=== PATIENT | male | born 1950 | race Caucasian/White ===

== ENCOUNTER → 2024-02-26 13:36 | Outpatient (REF) | payer MEDICARE, OTHER, SELFPAY | LOC: HWRAD 13:36 | PROVIDERS: ATTENDING PHYSICIAN Physician Assistant Medical | DX: M25.511 Pain in right shoulder (principal) | CPT/HCPCS: 73030 ==

== ENCOUNTER 2024-04-23 15:44 | Emergency (ER) | payer MEDICARE, OTHER, SELFPAY ==
[2024-04-23 15:45] VITALS: BP 158/73
--- NOTE | 2024-04-23 18:08 | ED.MUSCINJ ---
HPI-Injury
<Junie Mahajan NP - Last Filed: 04/23/24 23:00>
General
Chief Complaint: Fall
Source: patient
Exam Limitations: none
Time Seen by Provider: 04/23/24 16:32
Nursing documentation reviewed up to this point in time: agreed with
History of Present Illness-Injury
Is this injury a work related problem?: No
Is pt an associate of [facility]?: No
Initial Injury comments:
Patient to ED s/p fall. States he missed a step and fell. Denies hitting his head. COmplains of pain to right shoulder, left taveras. Injury occurred just [employer]. To ED accompanied by spouse.
Past History
<Junie Mahajan NP - Last Filed: 04/23/24 23:00>
Past History
ED Past Medical History: None
Review of Systems
<Junie Mahajan NP - Last Filed: 04/23/24 23:00>
Review of Systems
Allergies reviewed?: Yes
All Other Systems: ROS reviewed and negative except as documented in HPI and ROS
Constitutional: Reports no symptoms
EENT: Reports no symptoms
Respiratory: Reports no symptoms
Cardiac: Reports no symptoms
ABD/GI: Reports no symptoms
Musculoskeletal: Reports joint pain (Pain to right shoulder)
Skin: Reports other (swelling, abrasion right taveras)
Neurological: Reports no symptoms
Psychiatric: Reports no symptoms
Musculoskeletal Injury Exam
<Junie Mahajan NP - Last Filed: 04/23/24 23:00>
Musculoskeletal Injury Exam
Right Shoulder:
Pain with Movement?: Moderate
Tender to palpation?: Moderate
Soft tissue swelling?: Mild
External deformity and angulation?: None
Joint effusion?: None
Contusion?: Moderate
Hematoma-local bleeding into tissue?: None
Strain- Sprain- Tear (Connective tissue injury)?: Moderate
Crepitus with movement?: No
Joint instability?: No
Malalignment/deformity?: No
Range of motion: Limited
Distal skin color and temperature: normal-warm & good color
Capillary Refill: normal
Normal distal neurovascular exam?: Yes
Peripheral Pulses: radial (right): 3+
Right Lower Leg:
Pain with Movement?: Moderate
Tender to palpation?: Moderate
Soft tissue swelling?: Moderate
External deformity and angulation?: None
Joint effusion?: None
Contusion?: Moderate
Hematoma-local bleeding into tissue?: None
Strain- Sprain- Tear (Connective tissue injury)?: None
Crepitus with movement?: No
Joint instability?: No
Malalignment/deformity?: No
Range of motion: Full
Distal skin color and temperature: normal-warm & good color
Capillary Refill: normal
Normal distal neurovascular exam?: No
Peripheral Pulses: posterior tibial (right): 3+ and dorsalis pedis (right): 3+
Skin Exam
<Junie Mahajan SECRETARIAL STENOGRAPHER - Last Filed: 04/23/24 23:00>
Abrasion
Right Lower Leg:
Description of abrasion: deep/clean
Phy Exam
<Junie Mahajan SECRETARIAL STENOGRAPHER - Last Filed: 04/23/24 23:00>
General Physical Exam
General Presentation: well appearing and mild distress
General age: appears stated age
General Skin: warm and dry
General Habitus: normal
General Mental: alert
Neurological Exam
Neurological Exam: alert, oriented x3, CN II-XII intact, no motor deficits, no sensory deficits and speech normal
Musculoskeletal Exam
Musculoskeletal Exam: neuro vasc intact
Skin Exam
Skin Exam: normal color and warm/dry
Psychiatric Exam
Psychiatric Exam: normal mood/affect
Injury Course
<Junie Mahajan SECRETARIAL STENOGRAPHER - Last Filed: 04/23/24 23:00>
Orders/Labs/Results
Orders:
Orders
04/23/24 15:50
Shoulder, Right, Trauma [CR Shoulder, Trauma - Right] Urgent
Comment:
Reason For Exam: fall, pain
Tib/Fib, Right 2 View [CR Leg Tibia/fibula Right 2 Vw] Urgent
Comment:
Reason For Exam: fall, pain
04/23/24 18:04
Shoulder Immobilizer Right- Tx ONCE
Hydrocodone 5/APAP 325 [[place] 5/325] 2 tablet PO NOW STA
<Amor Bhat DO - Last Filed: 04/23/24 18:16>
Orders/Labs/Results
Orders:
Orders
04/23/24 15:50
Shoulder, Right, Trauma [CR Shoulder, Trauma - Right] Urgent
Comment:
Reason For Exam: fall, pain
Tib/Fib, Right 2 View [CR Leg Tibia/fibula Right 2 Vw] Urgent
Comment:
Reason For Exam: fall, pain
04/23/24 18:04
Shoulder Immobilizer Right- Tx ONCE
Hydrocodone 5/APAP 325 [[place] 5/325] 2 tablet PO NOW STA
<Tita Davalos PA-C - Last Filed: 04/24/24 12:48>
Orders/Labs/Results
Orders:
Orders
04/23/24 15:50
Shoulder, Right, Trauma [CR Shoulder, Trauma - Right] Urgent
Comment:
Reason For Exam: fall, pain
Tib/Fib, Right 2 View [CR Leg Tibia/fibula Right 2 Vw] Urgent
Comment:
Reason For Exam: fall, pain
04/23/24 18:04
Shoulder Immobilizer Right- Tx ONCE
Hydrocodone 5/APAP 325 [[place] 5/325] 2 tablet PO NOW STA
<Junie Mahajan NP - Last Filed: 04/23/24 23:00>
*Radiology
Radiology exam reviewed: radiology read reviewed
*Pulse Oximetry
Patient hypoxic: no
*Critical Care Note
Total Time (30-74mins, 75-104mins- exclusive of procedures): Not Applicable
<Junie Mahajan NP - Last Filed: 04/23/24 23:00>
Update Note
Update Note:
Patient to ED after trip and fall. Denies hitting his head. Pain to right shoulder, right taveras. Xrays reviewed. No fracture noted RLE. Large abrasion to anterior taveras. Cleansed with NSS, antibiotic ointment and DSD applied by RN. Large amt of
swelling to RLE. Recommend khadijah wrap during day for compression, ice prn. RIght shoulder xray reveals fx with impaction proximal humerus. He was placed in sling. Pain meds given in dept. He is discharged home and will follow up in AM with
orthopedics.
<Tita Davalos PA-C - Last Filed: 04/24/24 12:48>
Update Note
Update Note:
Patient to ED after trip and fall. Denies hitting his head. Pain to right shoulder, right taveras. Xrays reviewed. No fracture noted RLE. Large abrasion to anterior taveras. Cleansed with NSS, antibiotic ointment and DSD applied by RN. Large amt of
swelling to RLE. Recommend khadijah wrap during day for compression, ice prn. RIght shoulder xray reveals fx with impaction proximal humerus. He was placed in sling. Pain meds given in dept. He is discharged home and will follow up in AM with
orthopedics.
04/24/24: Patient called requesting prescription pain medication. Chart reviewed. Prescription for 12 tablets of oxycodone sent electronically. He has an appt scheduled with orthopedics tomorrow.
ED Attending Note
<Junie Mahajan NP - Last Filed: 04/23/24 23:00>
-
Portions of this chart may have been created with voice recognition software.� Occasional wrong word or��sound alike� substitutions may have occurred due to the inherent limitations of voice recognition software.
<Amor Bhat DO - Last Filed: 04/23/24 18:16>
ED Attending Note
Patient seen and examined by attending physician: Yes
I performed the substantive portion of visit, reviewed & personally made and approve the management plan that is documented in note by myself or DOLLY.: Yes
ED Attending Note:
74-year-old male after a fall. Denies any head injury. No neck or back pain. Exam: Swelling to the right shoulder but is able to sort of extended shoulders back and I do not suspect dislocation as there is no empty glenoid and he is not held in
internal rotation. Abrasion to the right elbow. Abrasion to the right lower extremity. Assessment and plan: Shoulder sling and outpatient orthopedic follow-up
Discharge Plan
Departure
Patient Disposition: Home (Routine Discharge)
Date of Disposition: 04/23/24
Time of Disposition: 18:53
Patient with high blood pressure during this ER visit?: No
Condition: Good
Covid-19: Not Applicable
Discharge Problem:
Fracture of proximal humerus, Contusion of left leg, Abrasion of leg
Instructions: Wound Care (DC), Contusion (DC), Preventing falls in adults, Skin Abrasions (DC), Shoulder or upper arm fracture
Prescriptions:
New
oxycodone 5 mg tablet
5 mg PO Q6H PRN (Reason: Pain) Qty: 12 0RF
Referrals:
René Fong MD [Family Provider] -
Amor Rueda MD [Active] - Call in 1-3 days for appt
Interventions
Interventions:
*Risk Screen - Suicide Last Done: 04/23/24 17:10
*General Assessment Last Done: 04/23/24 17:10
*Neglect/Abuse Screening Last Done: 04/23/24 17:10
ED- Fall Risk Assessment Last Done: 04/23/24 19:28
*ED COVID-19 Vaccine History Last Done: 04/23/24 17:10
*Nursing Disposition Last Done: 04/23/24 19:28
ED-Musculoskeletal Assessment Last Done: 04/23/24 17:10
ED- Neurological Assessment Last Done: 04/23/24 17:10
ED-Skin Assessment Last Done: 04/23/24 17:10
Discharge Date and Time
Discharge Date/Time: 04/23/24 19:37
Print Language: URUGUAYAN
[2024-04-23] MEDS: NORCO 5/325 2 TABLET PO (18:09)
[2024-04-23 19:28] VITALS: BP 138/86
== END 2024-04-23 19:37 | disposition home or self-care (01) ==
LOC: EMR 15:44
PROVIDERS: EMERGENCY PHYSICIAN Emergency Medicine; FAMILY PHYSICIAN Family Medicine
DX: S80.12XA Contusion of left lower leg, initial encounter (principal); S80.811A Abrasion, right lower leg, initial encounter; S50.311A Abrasion of right elbow, initial encounter; M25.511 Pain in right shoulder; W10.9XXA Fall (on) (from) unspecified stairs and steps, initial encounter
CPT/HCPCS: 99283; 73030; 73590

== ENCOUNTER 2024-04-28 12:50 | Emergency (ER) | payer MEDICARE, OTHER, SELFPAY ==
[2024-04-28 12:55] VITALS: BP 146/75
--- NOTE | 2024-04-28 14:59 | ED.GENMED ---
History of Present Illness
General
Chief Complaint: Fall
Time Seen by Provider: 04/28/24 14:59
History of Present Illness
History of Present Illness:
TIME OF INITIAL ENCOUNTER: 3:10 PM
HPI: Patient fell 5 days ago with injury to the right lower extremity. Patient was seen here that day. He has been having some trouble with dressing changes as his is ill and has caring for him. Today, he noticed a bloody blister which has
since open. There is no evidence for pus or any foul-smelling odor. The pain continues to improve but still persists.
EXAM:
GENERAL: Well appearing in no distress
HEENT: Moist oral mucosa
NEUROLOGIC: Excellent strength all extremities, no obvious coordination deficits
PSYCHIATRIC: Appropriate mental status, normal insight and judgement
EXTREMITIES: At the right lower extremity, there is a rather large wound with skin tears and abrasions over an associated relatively large hematoma the anterolateral right taveras region. An unroofed blister which was likely hemorrhagic is noted but
no evidence of pus nor foul-smelling odor. There is mild diffuse tenderness but the compartments are soft. He has a bounding DP pulse. Sling is noted to the right upper extremity.
SKIN: No rash, no lesions
NUMBER AND COMPLEXITY OF PROBLEMS ADDRESSED AT THE ENCOUNTER
� Chronic conditions affecting care: High blood pressure, hyperlipidemia
� Acute Exacerbation and/or Progression of Chronic Illness: This is an acute problem
� Differential Diagnosis includes: Infected wound, poorly healing wound, prolonged healing process, abrasion, cellulitis,
AMOUNT AND/OR COMPLEXITY OF DATA TO BE REVIEWED AND ANALYZED
� I performed an independent evaluation of and my interpretation is:
EKG:
CT:
X-rays:
Laboratory Studies:
Other:
� Review of other/old records: I reviewed old records, on April 23, the patient had a tib-fib and shoulder x-rays�showed impacted surgical neck fracture
� Clinical information was obtained by an independent historian: None needed
� Prescriptions/Medications Considered but not given:
� Further testing considered but not performed: Vital signs are not consistent with sepsis, held off on any labs but will place on antibiotics
RISK OF COMPLICATIONS AND/OR MORBIDITY OR MORTALITY OF PATIENT MANAGEMENT
� Social determinants of health affecting care: Lives at home but has trouble changing the splint
� Discussion with other providers: I spoke to case management and they are arranging for daily dressing changes at the house.
� Escalation of care including admission/observation vs risk of discharge considered: Currently, there is no evidence for compartment syndrome
ANY OTHER UPDATES:
4 PM: I reassessed patient, no significant change in the appearance of his wound. He was seen by case management who is arranging for outpatient services. Will add antibiotics for the possibility of infection. He is to follow-up with AST here as
well. ALT is
Past History
Past History
ED Past Medical History: None
Phy Exam
Physical Exam
Physical Exam:
See HPI
Course
Orders/Labs/Results
Orders:
Orders
04/28/24 15:19
Case Management Consult ONCE
Case Management Consult: VN/Home Care
Comment: dressing changes
Nursing to Place Non Medication Order As Directed
Physician Order: nonadherent dressing then gauze wrap
04/28/24 15:20
Cephalexin Monohydrate [Keflex] 500 mg PO NOW STA
Vital Signs
Initial and Last Documented VS:
Initial Vital Signs
Temp Pulse Resp BP Pulse Ox
37.1 C 100 16 146/75 96
04/28/24 12:55 04/28/24 12:55 04/28/24 12:55 04/28/24 12:55 04/28/24 12:55
Last Documented Vital Signs
Temp Pulse Resp BP Pulse Ox
37.1 C 100 16 146/75 96
04/28/24 12:55 04/28/24 12:55 04/28/24 12:55 04/28/24 12:55 04/28/24 12:55
*Critical Care Note
Total Time (30-74mins, 75-104mins- exclusive of procedures): Not Applicable
ED Attending Note
-
Portions of this chart may have been created with voice recognition software.� Occasional wrong word or��sound alike� substitutions may have occurred due to the inherent limitations of voice recognition software.
Discharge Plan
Departure
Patient Disposition: Home (Routine Discharge)
Date of Disposition: 04/28/24
Time of Disposition: 15:28
Patient with high blood pressure during this ER visit?: Yes
Discharge Problem:
Delayed wound healing
Instructions: Wound care - ED discharge instructions
Prescriptions:
New
cephalexin 500 mg tablet
500 mg PO TID Qty: 21 0RF
No Action
oxycodone 5 mg tablet
5 mg PO Q6H PRN (Reason: Pain) Qty: 12 0RF
Referrals:
Jimmy Iglesias PA [Family Provider] -
Constantino Morel MD [Active] - Follow up in 2-3 days
Activity Restrictions/Additional Instructions:
I spoke to case management�they should be sending somebody to the house to help with dressing changes. Given the appearance of the wound, I recommend that you follow-up with health support specialist such as Dr. Morel -please call their office for
follow-up. Although I do not see any clear signs of infection, I think would be reasonable to place you on antibiotics in case there could be a start of an infection. Follow-up with your primary care doctor. Currently, there is no sign for
compartment syndrome.
Interventions
Interventions:
*Risk Screen - Suicide Last Done: 04/28/24 12:59
*Neglect/Abuse Screening Last Done: 04/28/24 12:59
Discharge Date and Time
Print Language: FRENCH
--- NOTE | 2024-04-28 15:42 | CM ---
ED CM consult for wound care
Bedside meeting with pt
He resides with his spouse in [place] with [place]
He is typically indep with his ADLs
Pt had fall 5 days prior and now requires daily wound care for next 7 days per physician
Pt has R shoulder fx and sling
Spouse had knee replacement and has been unable to provide the required wound care that pt requires
Referral to [facility] with pt permission
Pt accepted for service
Pt note's his spouse with transport difficulties to outpt rehab
Suggested family or [employer]
Also suggested they call her physician to order VN should no alternative rides be found
--- NOTE | 2024-04-28 15:48 | VNURNOTE ---
Home Health Liaison met with patient at bedside to discuss [facility] nurse/therapy, visits, schedule and homebound status. Patient is agreeable and understands that visits at home will be 2-3 x per week to assess and teach medical management, wound care.
[facility] brochure provided with contact information. Patient is aware that [facility] will contact them for start of care in 1-2 days after discharge from .
[facility] referral completed in Care Port.
[2024-04-28] MEDS: KEFLEX 500 MG PO (16:00)
== END 2024-04-28 17:01 | disposition home or self-care (01) ==
LOC: EMR 12:50
PROVIDERS: EMERGENCY PHYSICIAN Emergency Medicine; FAMILY PHYSICIAN Physician Assistant
DX: S81.811A Laceration without foreign body, right lower leg, initial encounter (principal); W19.XXXA Unspecified fall, initial encounter
CPT/HCPCS: 99283

== ENCOUNTER → 2024-05-01 12:45 | Outpatient (REF) | payer MEDICARE, OTHER, SELFPAY | LOC: WOUND 12:45 | PROVIDERS: ATTENDING PHYSICIAN Surgery; FAMILY PHYSICIAN Physician Assistant | DX: L97.212 Non-pressure chronic ulcer of right calf with fat layer exposed (principal); S80.11XA Contusion of right lower leg, initial encounter; X58.XXXA Exposure to other specified factors, initial encounter | CPT/HCPCS: 99203 ==

== ENCOUNTER → 2024-05-01 13:55 | Outpatient (REF) | payer MEDICARE, OTHER, SELFPAY | LOC: HWRAD 13:55 | PROVIDERS: ATTENDING PHYSICIAN Physician Assistant; FAMILY PHYSICIAN Physician Assistant | DX: S42.201A Unspecified fracture of upper end of right humerus, initial encounter for closed fracture (principal) | CPT/HCPCS: 73200 ==

== ENCOUNTER → 2024-05-08 10:38 | Outpatient (REF) | payer MEDICARE, OTHER, SELFPAY | LOC: WOUND 10:38 | PROVIDERS: ATTENDING PHYSICIAN Surgery | DX: L97.212 Non-pressure chronic ulcer of right calf with fat layer exposed (principal); S80.11XA Contusion of right lower leg, initial encounter; S51.001A Unspecified open wound of right elbow, initial encounter; I10 Essential (primary) hypertension; R73.03 Prediabetes | CPT/HCPCS: 97597; 99213 ==

== ENCOUNTER 2024-05-11 23:21 | Inpatient (IN) | payer MEDICARE, OTHER, SELFPAY ==
[2024-05-11 21:35] VITALS: BP 163/69; BMI 42.2
[2024-05-11 21:51] LABS: % Basophils 0.1 % (0-2); % Eosinophils 0.9 % (0-6); % Immature Granulocytes 0.2 % (0-0.5); % Lymphocytes 11.5 % (20.5-51.1); % Monocytes 6.9 % (1.7-9.3); % Neutrophils 80.4 % (42.2-75.2); Absolute Eosinophils 0.1 10^3/uL (0-0.7); Absolute Monocytes 0.6 10^3/uL (0.1-0.6); Absolute Neutrophils 7.1 10^3/uL (1.4-6.5); Hematocrit 33.3 % (39.0-52.0); Hemoglobin 11.3 g/dL (13.0-18.0); Mean Corp Hgb Conc. 33.9 g/dL (33.0-37.0); Mean Corpuscular Hgb 29.9 pg (27.0-31.0); Mean Corpuscular Volume 88.1 fL (80.0-94.0); Mean Platelet Volume 8.3 fL (7.4-10.4); Nucleated Red Blood Cells % 0 % (-); Platelet Count 180 10^3/uL (130-400); Red Blood Cell Count 3.78 10^6/uL (4.70-6.10); White Blood Cell Count 8.8 10^3/uL (4.8-10.8)
[2024-05-11 22:00] VITALS: BP 136/73
[2024-05-11 22:01] LABS: INR 1.07; PT 14.2 Sec (11.4-14.6)
[2024-05-11 22:04] LABS: ALT (SGPT) 31 U/L (0-50); AST (SGOT) 44 U/L (17-59); Albumin 3.9 g/dl (3.5-5.0); Alkaline Phosphatase 117 U/L (38-126); Blood Urea Nitrogen 23 mg/dl (9-20); Carbon Dioxide 28 mmol/L (22-30); Chloride 100 mmol/L (98-107); Estimated Creatinine Clearance 108 ml/min; Glucose 154 mg/dl (70-99); Potassium 3.4 mmol/L (3.5-5.1); Sodium 137 mmol/L (135-145); Total Bilirubin 0.9 mg/dl (0.2-1.3); Total Protein 6.3 g/dl (6.3-8.2); eGFR > 60.00
--- NOTE | 2024-05-11 22:20 | ED.GENMED ---
History of Present Illness
<Charlotte Wayne MD, Resident - Last Filed: 05/12/24 01:30>
General
Chief Complaint: Breathing Problem
Source: patient and family
Exam Limitations: none
Time Seen by Provider: 05/11/24 22:03
Nursing documentation reviewed up to this point in time: agreed with
History of Present Illness
History of Present Illness:
74yo M with PMH HTN, RENA, recent fall and humerus fracture who presented from home to ED for dizziness/shortness of breath. On 04/23/24, he missed a step and fell, which resulted in right humerus fracture and large right taveras abrasion; no head
trauma. Since then he was seen in ED again for poor wound healing of taveras. He has been following with orthopedics, wound care, and visiting nursing. He tentatively has orthopedic surgery scheduled this week, but he has decided to pursue conservative
management instead.
A few days ago he also noticed swelling of left lower extremity. He denies chest pain/pressure, cough, fevers/chills. He reports that today was a 'normal day' until 8:15pm, when he ambulated in his home and felt dizziness and shortness of breath.
When EMS arrived at his home, he was hypoxic and required 6L O2 via NC and was tachycardic in 120s-130s. He is otherwise in his usual state of health and reports improvement in all of his injuries from the recent fall-- denies worsening
pain/redness/drainage from RLE. He takes baby aspirin daily, no other blood thinners.
Past History
<Charlotte Wayne MD, Resident - Last Filed: 05/12/24 01:30>
Past History
ED Past Medical History: Cancer (skin cancer s/p mohs x5), HTN, Hypercholesterolemia and Other (sleep apnea, hereditary peripheral neuropathy); Negative Arrthythmia
ED Past Surgical History: Orthopedic (L elbow ~2013) and Other (mohs surgery (nose x2, neck x2, ear))
Patient has exhibited threatening behavior?: No
Social History
Tobacco: Non-smoker
Alcohol: None
Drug: None
Personal:
Living: with family
Family History
Family History: Other (noncontributory)
Review of Systems
<Charlotte Wayne MD, Resident - Last Filed: 05/12/24 01:30>
Review of Systems
Allergies reviewed?: Yes
Constitutional: Reports no symptoms; Denies fever, fatigue or chills
EENT: Reports no symptoms
Respiratory: Reports trouble breathing; Denies cough or hemoptysis
Cardiac: Denies chest pain, diaphoresis, palpitations or syncope
ABD/GI: Reports no symptoms; Denies abdominal pain, nausea, vomiting, diarrhea, constipated, bloody stools or black stools
: Reports no symptoms; Denies dysuria or difficulty voiding
Musculoskeletal: Reports other (see HPI)
Skin: Reports other (RLE abrasion-- no purulent drainage, no worsening erythema/edema)
Neurological: Reports dizzy and numbness (chronic, at baseline); Denies headache or weakness
Endocrine: Reports no symptoms
Hematologic/Lymphatic: Reports no symptoms
Psychiatric: Reports no symptoms
Phy Exam
<Charlotte Wayne MD, Resident - Last Filed: 05/12/24 01:30>
General Physical Exam
General Presentation: well appearing, no apparent distress and other (on supplemental O2 via NC )
General age: appears stated age
General Skin: warm and dry
General Habitus: elderly and obese
General Mental: alert
General Hydration: appears well hydrated
Cardiovascular Exam
Cardiovascular Exam: tachycardia (regular rhythm)
Heart Sounds: normal
Pulmonary Exam
Pulmonary Exam: lungs clear, no crackles, no rhonchi, no stridor, no wheezing, no cough and decreased breath sounds (left slightly dbs)
Oxygen Status: oxygen 6 liters via NC
Respirations: other (nonlabored breathing, conversant without difficulty )
Gastrointestinal Exam
Gastrointestinal Exam: non tender, soft and non distended (obese abdomen)
Neurological Exam
Neurological Exam: alert, oriented x3 and speech normal
Musculoskeletal Exam
Musculoskeletal Exam: edema (LLE +3 pitting edema, calf nontender, alexandro sign negative) and other (RLE wrapped from foot to knee, dressing clean/dry/intact; RUE without sling/splint/cast, limited ROM)
Skin Exam
Skin Exam: normal color and warm/dry
Psychiatric Exam
Psychiatric Exam: normal mood/affect
Scores
<Charlotte Wayne MD, Resident - Last Filed: 05/12/24 01:30>
Heart Failure Risk
Heart Failure Risk Score: Not Applicable
Course
<Charlotte Wayne MD, Resident - Last Filed: 05/12/24 01:30>
Orders/Labs/Results
Orders:
Orders
05/11/24 21:34
Electrocardiogram (*1) Urgent
Reason for Study: Shortness of Breath
Cardiac Monitoring- Treatment ONCE
EKG- Treatment ONCE
05/11/24 21:42
CMP [Comprehensive Metabolic Panel] Urgent
Complete Blood Count/With Diff Urgent
PT/INR [Prothrombin Time] Urgent
PTT Urgent
Comment: ADDED
Troponin I Urgent
05/11/24 21:48
CT Chest PE Study Urgent
Comment:
Reason For Exam: SOB
05/11/24 22:34
Heparin 10,000 units IV NOW STA
Nursing to Place Non Medication Order As Directed
Physician Order: PTT 6 hours after initial start of Heparin infusion
Above order entered?: Yes
05/11/24 22:35
Heparin 5,000 units .ROUTE .STK-MED ONE
05/11/24 22:42
Heparin 10,000 units IV PRN PRN
05/11/24 22:43
Heparin 5,000 units IV PRN PRN
05/11/24 22:45
Heparin 12008 Units/250 ml 25,000 units in 250 ml IV PER PROTOCOL
Weight to be used for heparin protocol in kilograms (kg):: 126
Protocol:: DVT/PE
PTT Goal Range to be used:: PTT 73 to 111 seconds
Order type:: Initial
INITIAL Infusion Dose (UNITS/KG/hr) & then follow protocol:: 18 units/kg/hr
Infusion Dose in UNITS/hr & then follow protocol (UNITS/hr):: 2,000
INFUSION RATE in mL/hr & then follow protocol (mL/hr):: 20
For DVT/PE algorithm, re-bolus for low PTT?: Yes
PTT less than or equal to 64 seconds:: Re-bolus 80 units/kg (max 10,000units). Increase by 500 units/hr
(+ 5mL/hr)
PTT 64.1 to 72.9 seconds:: Re-bolus 40 units/kg (max 5,000 units). Increase by 300 units/hr
(+ 3mL/hr)
PTT 73 to 111 seconds:: Target Range. No change in rate.
PTT 111.1 to 130.9 seconds:: Decrease rate by 300 units/hr (- 3 mL/hr)
PTT 131 to 199.9 seconds:: HOLD for 1 hr. Then decrease by 400 units/hr (- 4mL/hr)
PTT greater than or equal to 200 seconds:: HOLD for 2 hrs & Notify Provider. Then decrease by 500 units/hr
(- 5mL/hr)
Lab follow-up:: Each change, PTT q6h until 2 consecutive are therapeutic. Then
PTT daily.
05/11/24 22:47
Add On- LAB Urgent
Tests Added?: PTT
05/11/24 23:00
Flush (0.9% Sodium Chloride) [Flush (Nss)] See Dose Instructions IV PER PROTOCOL
05/11/24 23:04
Potassium Chloride [KCl] 40 meq PO NOW STA
05/11/24 23:05
Admit/Transfer Patient As Directed
Co-Sign Provider:
Level of Care: Inpatient admission
Assign to:: ICU
Physician / Group: karis
Diagnosis: PE
Reason for Hospitalization: PE
Expected length of stay greater than two midnights?: Yes
ELOS- Estimated Length of Stay in days: 3
I certify the patient meets the requirements for IP care: Yes
05/11/24 23:06
PRN Pain Medication Management As Directed
May give lesser potent ordered pain med per pt: Yes
preference::
Protocol:: Medication orders for pain may be administered in a
manner that supports deferring to patient preference
when the pt is:
- Requesting an ordered lesser potent pain medication.
Least to most potent pain medications are defined
as: acetaminophen < NSAID < tramadol < opioids
(morphine, oxycodone, hydromorphone).
- Requesting a lesser dose of the same medication IF
ORDERED.
- Requesting a less intrusive route of administration
if both routes are prescribed by the provider (PO <
IV).
05/11/24 23:07
Code Status As Directed
Resuscitation Status: Full Code
05/11/24 23:21
CARDIOLOGY CONSULT Routine
Consulting Provider: Karl Travis
Was physician already notified: No
Reason for consult: elevated trop, saddle embolus, PE
Consult Notification Routine
Specialty to Notify: Cardiology
Date consulting provider notified: 05/12/24
Time consulting provider notified: 07:30
Notified:: Service
05/11/24 23:41
IRAD CONSULT Routine
Consulting Provider: Landry Rg
Was physician already notified: Yes
Reason for Consult/Procedure: PE lysis
Acknowledgement that appropriate orders are entered: Yes
05/12/24 01:45
Laser Technician Consult Routine
Consulting Provider: Leila Luz
Was physician already notified: Yes
Heparin Protocol- PTT Orders As Directed
PTT per Heparin protocol: -Obtain CBC and baseline PTT - if not already collected.
-Obtain PTT 6 hours from start of infusion. Then, every 6 hours until 2 consecutive
PTT's are therapeutic. Then, PTT Daily.
-With each rate change, obtain PTT every 6 hours until 2 consecutive PTT's are
therapeutic. Then, PTT Daily.
Activity As Directed
Activity Level: As Tolerated
Bladder Scan As Directed
Follow Bladder Retention/Intermittent Cath Algorithm?: Yes
Frequency: Per Retention Algorithm
Comment: as per intermittent urinary catheter algorithm
Bladder Scan As Directed
Follow Bladder Retention/Intermittent Cath Algorithm?: Yes
PRN if no void in __ hours: 6
Frequency: Per Retention Algorithm
If Bladder Scan Result >: 400
then:: Straight cath
Intake/ Output As Directed
Frequency: Per unit guidelines
Notify MD As Directed
Notify physician if: PTT is greater than or equal to 200.
Straight Cath As Directed
Frequency: Per Retention Algorithm
Additional Instructions: as per intermittent urinary catheter algorithm
Straight Cath As Directed
Frequency: Per Retention Algorithm
Additional Instructions: straight cath as needed per acute urinary retention algorithm for 24 hrs
Additional Instructions: for bladder scan greater than 400 mL
Vital Signs As Directed
Frequency: Per unit guidelines
Pt Eval And Treat Routine
Activity Level: As Tolerated
05/12/24 04:37
Troponin I Q6H
05/12/24 Breakfast
NPO
Allow oral meds: Yes
Allow clear liquids: No
05/12/24 08:00
Amlodipine [Norvasc] 2.5 mg PO DAILY
Atorvastatin [Lipitor] 20 mg PO DAILY
Lisinopril [Zestril] 20 mg PO DAILY
fluticasone propionate 2 spray NASAL DAILY
05/12/24 10:00
Troponin I Q6H
05/12/24 16:00
Troponin I Q6H
05/13/24 06:00
Complete Blood Count/No Diff Q2D
Comment: notify provider: Platelet count < 130,000 or decrease by 50% from baseline
05/15/24 06:00
Complete Blood Count/No Diff Q2D
Comment: notify provider: Platelet count < 130,000 or decrease by 50% from baseline
05/17/24 06:00
Complete Blood Count/No Diff Q2D
Comment: notify provider: Platelet count < 130,000 or decrease by 50% from baseline
05/19/24 06:00
Complete Blood Count/No Diff Q2D
Comment: notify provider: Platelet count < 130,000 or decrease by 50% from baseline
05/21/24 06:00
Complete Blood Count/No Diff Q2D
Comment: notify provider: Platelet count < 130,000 or decrease by 50% from baseline
05/23/24 06:00
Complete Blood Count/No Diff Q2D
Comment: notify provider: Platelet count < 130,000 or decrease by 50% from baseline
05/25/24 06:00
Complete Blood Count/No Diff Q2D
Comment: notify provider: Platelet count < 130,000 or decrease by 50% from baseline
05/27/24 06:00
Complete Blood Count/No Diff Q2D
Comment: notify provider: Platelet count < 130,000 or decrease by 50% from baseline
Abnormal Lab Results
05/11/24
21:42
RBC 3.78 L 10^6/uL
(4.70-6.10)
Hgb 11.3 L g/dL
(13.0-18.0)
Hct 33.3 L %
(39.0-52.0)
Absolute Neuts (auto) 7.1 H 10^3/uL
(1.4-6.5)
Absolute Lymphs (auto) 1.0 L 10^3/uL
(1.2-3.4)
Neutrophils % 80.4 H %
(42.2-75.2)
Lymphocytes % 11.5 L %
(20.5-51.1)
Potassium 3.4 L mmol/L
(3.5-5.1)
BUN 23 H mg/dl
(9-20)
Glucose 154 H mg/dl
(70-99)
Troponin I 0.204 H* ng/ml
05/11/24 21:42
05/11/24 21:42
Vital Signs
Initial and Last Documented VS:
Initial Vital Signs
Temp Pulse Resp BP Pulse Ox
97.9 F 122 19 163/69 82
05/11/24 21:35 05/11/24 21:35 05/11/24 21:35 05/11/24 21:35 05/11/24 21:35
Last Documented Vital Signs
Temp Pulse Resp BP Pulse Ox
98.6 F 111 21 132/75 96
05/12/24 02:45 05/12/24 06:00 05/12/24 06:00 05/12/24 06:00 05/12/24 06:00
<Kayla Bennett, DO - Last Filed: 05/12/24 07:54>
Orders/Labs/Results
Orders:
Orders
05/11/24 21:34
Electrocardiogram (*1) Urgent
Reason for Study: Shortness of Breath
Cardiac Monitoring- Treatment ONCE
EKG- Treatment ONCE
05/11/24 21:42
CMP [Comprehensive Metabolic Panel] Urgent
Complete Blood Count/With Diff Urgent
PT/INR [Prothrombin Time] Urgent
PTT Urgent
Comment: ADDED
Troponin I Urgent
05/11/24 21:48
CT Chest PE Study Urgent
Comment:
Reason For Exam: SOB
05/11/24 22:34
Heparin 10,000 units IV NOW STA
Nursing to Place Non Medication Order As Directed
Physician Order: PTT 6 hours after initial start of Heparin infusion
Above order entered?: Yes
05/11/24 22:35
Heparin 5,000 units .ROUTE .STK-MED ONE
05/11/24 22:42
Heparin 10,000 units IV PRN PRN
05/11/24 22:43
Heparin 5,000 units IV PRN PRN
05/11/24 22:45
Heparin 94637 Units/250 ml 25,000 units in 250 ml IV PER PROTOCOL
Weight to be used for heparin protocol in kilograms (kg):: 126
Protocol:: DVT/PE
PTT Goal Range to be used:: PTT 73 to 111 seconds
Order type:: Initial
INITIAL Infusion Dose (UNITS/KG/hr) & then follow protocol:: 18 units/kg/hr
Infusion Dose in UNITS/hr & then follow protocol (UNITS/hr):: 2,000
INFUSION RATE in mL/hr & then follow protocol (mL/hr):: 20
For DVT/PE algorithm, re-bolus for low PTT?: Yes
PTT less than or equal to 64 seconds:: Re-bolus 80 units/kg (max 10,000units). Increase by 500 units/hr
(+ 5mL/hr)
PTT 64.1 to 72.9 seconds:: Re-bolus 40 units/kg (max 5,000 units). Increase by 300 units/hr
(+ 3mL/hr)
PTT 73 to 111 seconds:: Target Range. No change in rate.
PTT 111.1 to 130.9 seconds:: Decrease rate by 300 units/hr (- 3 mL/hr)
PTT 131 to 199.9 seconds:: HOLD for 1 hr. Then decrease by 400 units/hr (- 4mL/hr)
PTT greater than or equal to 200 seconds:: HOLD for 2 hrs & Notify Provider. Then decrease by 500 units/hr
(- 5mL/hr)
Lab follow-up:: Each change, PTT q6h until 2 consecutive are therapeutic. Then
PTT daily.
05/11/24 22:47
Add On- LAB Urgent
Tests Added?: PTT
05/11/24 23:00
Flush (0.9% Sodium Chloride) [Flush (Nss)] See Dose Instructions IV PER PROTOCOL
05/11/24 23:04
Potassium Chloride [KCl] 40 meq PO NOW STA
05/11/24 23:05
Admit/Transfer Patient As Directed
Co-Sign Provider:
Level of Care: Inpatient admission
Assign to:: ICU
Physician / Group: karis
Diagnosis: PE
Reason for Hospitalization: PE
Expected length of stay greater than two midnights?: Yes
ELOS- Estimated Length of Stay in days: 3
I certify the patient meets the requirements for IP care: Yes
05/11/24 23:06
PRN Pain Medication Management As Directed
May give lesser potent ordered pain med per pt: Yes
preference::
Protocol:: Medication orders for pain may be administered in a
manner that supports deferring to patient preference
when the pt is:
- Requesting an ordered lesser potent pain medication.
Least to most potent pain medications are defined
as: acetaminophen < NSAID < tramadol < opioids
(morphine, oxycodone, hydromorphone).
- Requesting a lesser dose of the same medication IF
ORDERED.
- Requesting a less intrusive route of administration
if both routes are prescribed by the provider (PO <
IV).
05/11/24 23:07
Code Status As Directed
Resuscitation Status: Full Code
05/11/24 23:21
CARDIOLOGY CONSULT Routine
Consulting Provider: Karl Travis
Was physician already notified: No
Reason for consult: elevated trop, saddle embolus, PE
Consult Notification Routine
Specialty to Notify: Cardiology
Date consulting provider notified: 05/12/24
Time consulting provider notified: 07:30
Notified:: Service
05/11/24 23:41
IRAD CONSULT Routine
Consulting Provider: Landry Rg
Was physician already notified: Yes
Reason for Consult/Procedure: PE lysis
Acknowledgement that appropriate orders are entered: Yes
05/12/24 01:45
Laser Technician Consult Routine
Consulting Provider: Leila Luz
Was physician already notified: Yes
Heparin Protocol- PTT Orders As Directed
PTT per Heparin protocol: -Obtain CBC and baseline PTT - if not already collected.
-Obtain PTT 6 hours from start of infusion. Then, every 6 hours until 2 consecutive
PTT's are therapeutic. Then, PTT Daily.
-With each rate change, obtain PTT every 6 hours until 2 consecutive PTT's are
therapeutic. Then, PTT Daily.
Activity As Directed
Activity Level: As Tolerated
Bladder Scan As Directed
Follow Bladder Retention/Intermittent Cath Algorithm?: Yes
Frequency: Per Retention Algorithm
Comment: as per intermittent urinary catheter algorithm
Bladder Scan As Directed
Follow Bladder Retention/Intermittent Cath Algorithm?: Yes
PRN if no void in __ hours: 6
Frequency: Per Retention Algorithm
If Bladder Scan Result >: 400
then:: Straight cath
Intake/ Output As Directed
Frequency: Per unit guidelines
Notify MD As Directed
Notify physician if: PTT is greater than or equal to 200.
Straight Cath As Directed
Frequency: Per Retention Algorithm
Additional Instructions: as per intermittent urinary catheter algorithm
Straight Cath As Directed
Frequency: Per Retention Algorithm
Additional Instructions: straight cath as needed per acute urinary retention algorithm for 24 hrs
Additional Instructions: for bladder scan greater than 400 mL
Vital Signs As Directed
Frequency: Per unit guidelines
Pt Eval And Treat Routine
Activity Level: As Tolerated
05/12/24 04:37
Troponin I Q6H
05/12/24 Breakfast
NPO
Allow oral meds: Yes
Allow clear liquids: No
05/12/24 08:00
Amlodipine [Norvasc] 2.5 mg PO DAILY
Atorvastatin [Lipitor] 20 mg PO DAILY
Lisinopril [Zestril] 20 mg PO DAILY
fluticasone propionate 2 spray NASAL DAILY
05/12/24 10:00
Troponin I Q6H
05/12/24 16:00
Troponin I Q6H
05/13/24 06:00
Complete Blood Count/No Diff Q2D
Comment: notify provider: Platelet count < 130,000 or decrease by 50% from baseline
05/15/24 06:00
Complete Blood Count/No Diff Q2D
Comment: notify provider: Platelet count < 130,000 or decrease by 50% from baseline
05/17/24 06:00
Complete Blood Count/No Diff Q2D
Comment: notify provider: Platelet count < 130,000 or decrease by 50% from baseline
05/19/24 06:00
Complete Blood Count/No Diff Q2D
Comment: notify provider: Platelet count < 130,000 or decrease by 50% from baseline
05/21/24 06:00
Complete Blood Count/No Diff Q2D
Comment: notify provider: Platelet count < 130,000 or decrease by 50% from baseline
05/23/24 06:00
Complete Blood Count/No Diff Q2D
Comment: notify provider: Platelet count < 130,000 or decrease by 50% from baseline
05/25/24 06:00
Complete Blood Count/No Diff Q2D
Comment: notify provider: Platelet count < 130,000 or decrease by 50% from baseline
05/27/24 06:00
Complete Blood Count/No Diff Q2D
Comment: notify provider: Platelet count < 130,000 or decrease by 50% from baseline
Abnormal Lab Results
05/11/24
21:42
RBC 3.78 L 10^6/uL
(4.70-6.10)
Hgb 11.3 L g/dL
(13.0-18.0)
Hct 33.3 L %
(39.0-52.0)
Absolute Neuts (auto) 7.1 H 10^3/uL
(1.4-6.5)
Absolute Lymphs (auto) 1.0 L 10^3/uL
(1.2-3.4)
Neutrophils % 80.4 H %
(42.2-75.2)
Lymphocytes % 11.5 L %
(20.5-51.1)
Potassium 3.4 L mmol/L
(3.5-5.1)
BUN 23 H mg/dl
(9-20)
Glucose 154 H mg/dl
(70-99)
Troponin I 0.204 H* ng/ml
05/11/24 21:42
05/11/24 21:42
Vital Signs
Initial and Last Documented VS:
Initial Vital Signs
Temp Pulse Resp BP Pulse Ox
97.9 F 122 19 163/69 82
05/11/24 21:35 05/11/24 21:35 05/11/24 21:35 05/11/24 21:35 05/11/24 21:35
Last Documented Vital Signs
Temp Pulse Resp BP Pulse Ox
98.6 F 111 21 132/75 96
05/12/24 02:45 05/12/24 06:00 05/12/24 06:00 05/12/24 06:00 05/12/24 06:00
<Charlotte Wayne MD, Resident - Last Filed: 05/12/24 01:30>
MDM/Problems Addressed
Differential Diagnosis Includes:
DVT/PE, ACS, pneumothorax
MDM/Problems Addressed:
74yo M with recent fall/humerus fracture, now presenting for SOB/dizziness, LLE edema.
His presentation is highly suspicious for PE given his history of recent fall and being less ambulatory, presenting symptoms, and hypoxia/tachycardia.
Labs drawn prior to evaluation notable for troponin 0.204, otherwise largely unremarkable-- mild anemia and hypokalemia noted.
Stat CT scan demonstrated saddle embolus. PERT alert was called at 2230. Elevated troponin likely secondary to right heart strain from PE.
IV heparin was initiated. PTT from admission pending.
This was discussed with radiology, interventional radiology, hospitalist.
Plan for IR cath and hospitalist admission.
Discussed above with patient and family (son, daughter in law) at bedside-- they are understanding and agreeable with plan.
<Charlotte Wayne MD, Resident - Last Filed: 05/12/24 01:30>
*Critical Care Note
Total Time (30-74mins, 75-104mins- exclusive of procedures): 60 minutes
ED Attending Note
<Charlotte Wayne MD, Resident - Last Filed: 05/12/24 01:30>
-
Portions of this chart may have been created with voice recognition software.� Occasional wrong word or��sound alike� substitutions may have occurred due to the inherent limitations of voice recognition software.
<Kayla Bennett DO - Last Filed: 05/12/24 07:54>
ED Attending Note
Patient seen and examined by attending physician: Yes
I performed the substantive portion of visit, reviewed & personally made and approve the management plan that is documented in note by myself or DOLLY.: Yes
ED Attending Note:
This is a 74-year-old gentleman with history of hypertension, maintained on amlodipine and low-dose aspirin. He suffered a fall April 23 with resultant right shoulder impacted fracture as well as significant hematoma/abrasion to his right lower
leg. He has been following with wound care weekly for his right lower leg hematoma/abrasion, and following with orthopedics with plan for eventual shoulder repair. He has noticed some left lower extremity swelling over the past few days and
tonight developed abrupt onset of shortness of breath. He denies chest pain, no cough, no fever nor chills.
Room air pulse ox 80%. Much more comfortable on nasal cannula oxygen at 6 L. No history of chronic lung disease. No prior history of thromboembolism.
74-year-old gentleman appears his stated age, awake and alert, very mild resting tachypnea but able to speak in full sentences and otherwise appears in no acute distress. Hemodynamically stable.
Heart is regular rhythm, tachycardic at 120.
Lungs have mildly decreased breath sounds at the bases otherwise clear to auscultation.
Left lower extremity with mild global nonpitting edema without palpable tenderness. Right lower extremity has a dry and intact Isaías wrap extending from ankle to below the knee. There is a large focal soft tissues swelling right mid anterolateral
lower leg region. Patient states this area of swelling has been slowly improving over the past 2 weeks.
We have significant history and exam significantly concerning for massive/submassive PE. Other consideration is pneumonia, pneumothorax, CHF.
Stat CT of the chest/PE study ordered.
EKG shows sinus tachycardia at 120, mild nonspecific interventricular conduction delay, otherwise unremarkable. No old EKGs to compare.
23:00
CAT scan shows saddle embolus with significant clot burden, mild heart strain.
PERT alert initiated 22:30
IV heparin bolus and drip initiated.
Case discussed with IR, reviewing the films.
Case discussed with hospitalist.
Case discussed with public works manager as well.
Although subacute right shoulder fracture and subacute right lower extremity hematoma, patient has no history of stroke, no history of GI bleed and concern is for significant clot burden, tachycardia, elevated troponin. He appears to be a viable
candidate for catheter directed thrombolysis.
Thus far remains hemodynamically stable.
Discharge Plan
Departure
Patient Disposition: Admit
Date of Disposition: 05/11/24
Time of Disposition: 23:28
Presentation/result/management discussed w/ accepting MD/DO: Hospitalist
Discharge Problem:
Saddle embolus of pulmonary artery
Interventions
Interventions:
*Risk Screen - Suicide Last Done: 05/11/24 21:35
*General Assessment Last Done: 05/11/24 21:35
*Neglect/Abuse Screening Last Done: 05/11/24 21:49
ED- Fall Risk Assessment Last Done: 05/11/24 21:49
*ED COVID-19 Vaccine History Last Done: 05/11/24 21:35
*Nursing Disposition Last Done: 05/12/24 00:05
ED- Cardiac Assessment Last Done: 05/11/24 21:49
ED- Pulmonary Assessment Last Done: 05/11/24 22:55
Discharge Date and Time
Discharge Date/Time: 05/12/24 00:05
[2024-05-11 22:22] LABS: Troponin I 0.204 ng/ml
--- NOTE | 2024-05-11 22:37 | EDRN ---
Patient transported via stretcher to CT with nurse and Dr. Bennett, patient placed on non-rebreather for better o2, dropped while in CT. Patient back to room, PERT alert called on patient, heparin ordered, called pharmacy to verify.
[2024-05-11] MEDS: HEPARIN 10000 UNITS IV (22:43)
[2024-05-11] MEDS: HEPARIN 25000 UNITS/250 ML IV (22:44)
--- NOTE | 2024-05-11 22:49 | HPS.HSE ---
Family Physician
-
Family Physician:
Chief Complaint
-
aob/dizzy
History of Present Illness
74yo M with PMH HTN, RENA, recent fall and humerus fracture who presented from home to ED for dizziness/shortness of breath. On 04/25/24, he missed a step and fell, which resulted in right humerus fracture and large right taveras abrasion. Since then he
was seen in ED again for poor wound healing of taveras. He has been following with orthopedics, wound care, and visiting nursing. He tentatively has orthopedic surgery scheduled this week, but he has decided to pursue conservative management instead.
today he was watching, he got up to use the bathroom, he felt dizzy and sob, which persisted so came to the ER. denied AGUIRRE, fever, chills, congestion, cough.denied chest pain. denied abdominal pain,n,v,d. denied dysuria or hematuria.
CT with massive PE,saddle embolus. heparinized in the ER. IR consulted
Medical History
Past Medical History
Past Medical History: Reports Other
Additional Past Medical History:
Obstructive uropathy
Allergic rhinitis
Hypothyroidism
BPH
Hyperlipidemia
Peripheral polyneuropathy
Hypertension
Obstructive sleep
Past Surgical History: Reports Other
Additional Past Surgical History:
Mohs surgery
Plates and screws in broken elbow
Social History
Tobacco: Non-smoker
Alcohol: None
Drug: None
Family History
Family History: Not pertinent
Allergies / Home Medications
Allergies reflects when Allergies were last updated in [facility].
Home Medications with original date entered in [facility]
Allergy/Medication List:
Allergies
Allergy/AdvReac Type Severity Reaction Status Date / Time
No Known Allergies Allergy Verified 05/11/24 21:41
Home Medications
amlodipine 2.5 mg tablet 2.5 mg PO DAILY 05/11/24
aspirin 81 mg tablet,delayed release 81 mg PO DAILY 05/11/24
atorvastatin 20 mg tablet 20 mg PO DAILY 05/11/24
fluticasone propionate 50 mcg/actuation nasal spray,suspension 2 spray intranasal DAILY 05/11/24
lisinopril 20 mg-hydrochlorothiazide 12.5 mg tablet 2 tab PO DAILY 05/11/24
Review of Systems
-
Constitutional: Reports No Symptoms
EENT: Reports No Symptoms
Respiratory: Reports Trouble Breathing
Cardiac: Reports No Symptoms
Abdomen/GI: Reports No Symptoms
: Reports No Symptoms
Musculoskeletal: Reports No Symptoms
Skin: Reports No Symptoms
Neurological: Reports Dizzy
Endocrine: Reports No Symptoms
Hematologic/Lymphatic: Reports No Symptoms
Psych: Reports No Symptoms
Physical Exam
Vital Signs
Vital Signs
Temp Pulse Resp BP Pulse Ox
97.9 F 122 19 163/69 94
05/11/24 21:35 05/11/24 21:35 05/11/24 21:35 05/11/24 21:35 05/11/24 21:49
Physical Exam
General: Well Developed, Well Nourished and No Apparent Distress
HEENT: NormoCephalic, Moist mucous membranes and Atraumatic
Respiratory: Clear
Cardiac: S1/S2 and Regular Rhythm; No Murmur or Rub
GI: Soft, Non Tender, Non Distended and Normal Bowel Sounds; No Organomegaly
Rectal: Deferred by Provider
Musculoskeletal: No Clubbing, No Cyanosis and No Edema
Skin: Rash and Other (right LE wound/hematoma wrapped in khadijah)
Neuro: AO x 3 and Nonfocal/grossly intact
Psych: Calm
Laboratory Results
-
05/11/24 21:42
05/11/24 21:42
Laboratory Results
PT 14.2 Sec (11.4-14.6) 05/11/24 21:42
INR 1.07 05/11/24 21:42
APTT Cancelled 05/11/24 22:34
Total Bilirubin 0.9 mg/dl (0.2-1.3) 05/11/24 21:42
AST 44 U/L (17-59) 05/11/24 21:42
ALT 31 U/L (0-50) 05/11/24 21:42
Alkaline Phosphatase 117 U/L (38-126) 05/11/24 21:42
Troponin I 0.204 ng/ml H* 05/11/24 21:42
Data Reviewed
-
Lab Data: Labs Reviewed by me
Impression/Plan
-
#acute hypoxic respiratory failure secondary to massive PE/saddle embolus
-heparin continued
-IR consulted
-continue supplemental oxygen to keep sat>95
-wean as tolerated
#elevated trop likely demand ischemia from PE
-trop 0.204
-EKG with the impression of sinus tachy
-trend torp
-denied chest pain
#essential htn
-Norvasc continued with hold parameter
#HLD
-statin
#CODE status
-full code
[2024-05-11 22:56] VITALS: BP 138/72
[2024-05-11 23:00] VITALS: BP 140/63
--- NOTE | 2024-05-11 23:00 | EDRN ---
Hospitalist at bedside working on admission orders.
--- NOTE | 2024-05-11 23:11 | W.PN.UPDATE ---
Update Note
Progress Note Update
Attending note.
Patient seen independently
74yo man with PMH of:
HTN,
RENA,
recent fall and humerus fracture
Comes in with large saddle embolus PE and heart strain with positive troponin. He presented from home to ED for dizziness/shortness of breath. On 04/23/24, he fell, which resulted in right humerus fracture and large right taveras abrasion. He has been
following with orthopedics, wound care, and visiting nursing. Today was a 'normal day' until 8:15pm, when he felt dizziness and shortness of breath. A few days ago he also noticed swelling of left lower extremity. At the time of my exam he was
tachypneic, and tachycardic with a rate of 125. CT results:
Multiple pulmonary emboli with a saddle embolus involving the bifurcation of the pulmonary trunk.
Severe clot burden.
Signs of mild right heart strain.
Solid noncalcified left upper lobe pulmonary nodule.
Simple hepatic cyst.
Troponin of 0.204
IR team coming in [facility] to provide catheter directed care.
PMH:
Other obstructive and reflux uropathy
Elevated PSA
Allergic rhinitis
Acquired hypothyroidism
Obesity, morbid, BMI 40.0-49.9
Benign prostatic hyperplasia
Impaired range of motion of left shoulder
Prediabetes
Mixed hyperlipidemia
Peripheral polyneuropathy
Primary hypertension
Obstructive sleep apnea
Cancer (skin cancer s/p mohs x5),
hereditary peripheral neuropathy
L elbow surgery ~2012
Exam:
Tachycardia, in distress, with rapid heart rate
Obese
Abs soft
Legs with edema
Right leg with bandage
A/P:
74 man with large saddle embolus PE, heart strain and elevated troponin
Heparin gtt
Oxygen
IR for procedure
ICU afterwards
Trend troponins until peaked
Continuity Manager and Cardiology consults
Further plans depending on how the procedure goes
Please see [facility] note for details on plans for his chronic medical problems.
35 minutes of critical care time spent.
[2024-05-11 23:12] LABS: APTT 31.1 Sec (23.4-35.0)
--- NOTE | 2024-05-11 23:15 | EDRN ---
Dr. Bennett in at bedside talking with patient and family about plan for patient to go to IR, waiting on the team to arrive.
[2024-05-11 23:20] VITALS: BP 104/59
--- NOTE | 2024-05-11 23:24 | EDRN ---
The doctor from interventional radiology is in the room consenting patient.
[2024-05-11 23:40] VITALS: BP 125/63
--- NOTE | 2024-05-11 23:49 | W.PN.UPDATE ---
Addendum entered and electronically signed by Landry Rg MD 05/12/24 01:12:
- Catheter directed thrombolysis initiated. 5F 10cm long infusion catheter placed into the R main and RLL pulmonary artery. 5 mg bolus of tPA given
- Unfortunately could not measures pressures. Significant resistance advancing 7F APC catheter through the heart, possibly caught on chordae tendineae
- tPA drip initiated at 1mg/hr. Heparin at 600 units/hr.
- Pt tolerated well. Will plan for lysis catheter check tomorrow. Family updated.
Original Note:
Update Note
Progress Note Update
- Briefly, 74yo male who sustained a fall and right shoulder fracture two weeks ago acutely developed dizziness and shortness of breath this evening and found to have bilateral PE
- CTA chest shows extensive bilateral PE with saddle component and bowing of the RV. RV/LV ratio ~1.8. Postive troponins. Pt falls into intermediate high risk PE
- On exam, patient on non-rebreather with O2 sats in the low 90s with sinus tachycardia. Speaking in full sentences. ECG negative for LBBB.
- Listed options of conservative therapy with heparin gtt with risk of decompensation vs catheter directed therapy. Pt and family opting for more aggressive therapy. Explained relative contraindication for tpa given recent fracture and leg wound.
Risk of arrhythmia, internal bleeding, /decompensation discussed.
[2024-05-12] VITALS (34 sets, daily range): BP systolic 106–169; BP diastolic 53–92; BMI 41.9
--- NOTE | 2024-05-12 00:02 | EDRN ---
Report to IR, nurse and patient transported over to the IR via stretcher and this RN
--- NOTE | 2024-05-12 02:12 | PTCARENOTE ---
Pt. handoff completed in IRAD. TPA/Heparin infusing at correct rates, site checks WNL. Pt. transferred to ICU w. 2 ICU RNs uneventfully.
GCS 15, normocephalic/atraumatic, focally intact. Pupils =/r 3mm w. brisk response. Movement in all extrem equally, however due to previous humeral fracture in R arm, pt is unable to bend or fully lift arm. Baseline peripheral neuropathy per pt. no
sensation issues outside of his baseline.
Tachycardic w.o ectopy noted. Normotensive. Normothermic. Pulses present w. doppler.
Eduardo in place, making adequate urine.
Due to previous mechanical fall at a restaurant weeks prior, pt. developed wound on R taveras which he is following wound care for outpatient. Wound is wrapped in Isaías bandage, due to sheath site being on R groin, unable to bend or lift pt. leg to
remove isaías bandage to assess wound at this time.
Family bedside upon arrival to ICU all questions answered and plan of care was explained.
[2024-05-12] MEDS: CATHFLO/ACTIVASE 1000 MG INF CATH ×2 (03:50→11:07)
[2024-05-12 04:59] LABS: INR 1.12; PT 14.7 Sec (11.4-14.6)
[2024-05-12 05:00] LABS: APTT 37.4 Sec (23.4-35.0); Fibrinogen 383 MG/DL (199-459)
[2024-05-12 05:01] LABS: Hematocrit 31.9 % (39.0-52.0); Hemoglobin 10.7 g/dL (13.0-18.0); Mean Corp Hgb Conc. 33.5 g/dL (33.0-37.0); Mean Corpuscular Hgb 29.3 pg (27.0-31.0); Mean Corpuscular Volume 87.4 fL (80.0-94.0); Mean Platelet Volume 8.7 fL (7.4-10.4); Platelet Count 108 10^3/uL (130-400); Red Blood Cell Count 3.65 10^6/uL (4.70-6.10); Red Cell Dist. Width 13.8 % (11.5-14.5); White Blood Cell Count 9.4 10^3/uL (4.8-10.8)
[2024-05-12 05:11] LABS: Blood Urea Nitrogen 20 mg/dl (9-20); Calcium 8.6 mg/dl (8.4-10.2); Carbon Dioxide 26 mmol/L (22-30); Chloride 106 mmol/L (98-107); Estimated Creatinine Clearance 123 ml/min; Glucose 115 mg/dl (70-99); Magnesium 2.1 mg/dl (1.6-2.3); Phosphorus 3.9 mg/dl (2.5-4.5); Potassium 3.8 mmol/L (3.5-5.1); Sodium 139 mmol/L (135-145); eGFR > 60.00
--- NOTE | 2024-05-12 07:21 | W.PN.UPDATE ---
Update Note
Progress Note Update
I saw and evaluated the patient. I reviewed the resident�s note and agree with findings and plan as documented in the resident�s note.
No new complaints.
Gen: NAD, AAOx3.
Eyes: EOMI, PERRLA, no scleral icterus.
Neck: supple.
CV: tachy, reg rhythm, +S1/S2, no m/r/g.
Resp: CTAB, no rales, wheezes, or rhonchi.
Abd: +BS, soft, NT, ND
Skin: No rashes.
Neuro: CN 2-12 intact, non-focal.
Psych: Normal mood and affect.
CTA chest: Multiple pulmonary emboli with a saddle embolus involving the bifurcation of the pulmonary trunk. Severe clot burden. Signs of mild right heart strain.
Acute hypoxic respiratory failure due to massive PE/saddle embolus:
-IR initiated catheter directed thrombolysis. Pressures cannot be measured due to significant resistance advancing 7F APC catheter through the heart, possibly caught on chordae tendineae.
-cont heparin/alteplase gtts
-currently on 55L high flow
-Elevated troponin, likely Type II NC due to acute PE. With trop 1.800 c/s cards. Check serial ECGs. Check echo.
Other problems:
Essential HTN: cont Norvasc/HCTZ/Lisinopril
HLD: cont statin
Morbid obesity due to excess calories
RENA
FULL/heparin gtt
Total critical care time spent = 34 min
--- NOTE | 2024-05-12 08:18 | CON.INTV ---
Consultation
Consultation Request
Date/Time Consultation Requested: 05/12/2024,01:45
Date/Time Consultation Performed: 05/12/2024,08:18
Requesting Provider: Francisco J Reed
Performing Provider: Kyrie Aguilera
Reason for Consultation: Acute saddle pulmonary embolus
Medical History
-
Chief Complaint: Shortness of breath and dizziness
History of Present Illness:
Patient is a 74-year-old male, who presented to the ER last night with complaints of dizziness and shortness of breath that started when he stood up after watching television to go to bed, he waited for some time, climbed up the stairs, went to the
bathroom but the shortness of breath and dizziness persisted. On evaluation in the ER, he was short of breath, tachypneic, tachycardic and without any chest pain. His EKG was done in the ER that showed a classic pattern of S1Q3T3 along with the CT
chest that revealed revealed saddle pulmonary embolus. He was immediately started on heparin infusion, IR was called for thrombolysis based on the classic findings and symptomology. He underwent catheter directed thrombolysis with tissue
plasminogen activator. He tolerated the procedure well, and was immediately transferred to ICU for further critical care.
His troponin was elevated in the ER, initially 0.2 but then peaked up to 1.8, most likely related to demand ischemia due to the large pulmonary embolus. He denied any chest pain, shortness of breath, palpitations, perspiration, or any other issues.
Cardiology consulted for further management in this regard.
The pulmonary embolism was most likely provoked as he did have history of fractured right humerus about 2 weeks ago for which he was following up with Ortho and was scheduled for outpatient TSA. He also has right lower extremity hematoma as a
result of the fall 2 weeks back, and being managed by wound care center.
Patient received catheter directed thrombolysis treatment currently admitted to critical care for observation. Patient lying supine, reports being comfortable, currently on high flow oxygen at 50 L/min, heparin at 600 units/h and tPA at 1 mg/h.
Patient due for reevaluation in afternoon with imaging.
Past Medical History
Past Medical History: HTN, Hypercholesterolemia, Hypothyroidism and Other (RENA on CPAP, history of prediabetes, MR by echo in 2021, peripheral neuropathy, BPH, obstructive uropathy, allergic rhinitis)
Past Surgical History: Other (Right humeral fracture)
Social History
Tobacco: Non-smoker
Alcohol: None
Living: With Family
Family History
Family History: Reviewed & Not Pertinent
Allergies / Home Medications
Allergies
Allergy/AdvReac Type Severity Reaction Status Date / Time
No Known Allergies Allergy Verified 05/11/24 21:41
Home Medications
�Medication �Instructions �Recorded �Confirmed �Last Taken �Type
amlodipine 2.5 mg tablet 2.5 mg PO DAILY 05/11/24 05/11/24 Unknown History
aspirin 81 mg tablet,delayed 81 mg PO DAILY 05/11/24 05/11/24 Unknown History
release
atorvastatin 20 mg tablet 20 mg PO DAILY 05/11/24 05/11/24 Unknown History
fluticasone propionate 50 2 spray intranasal DAILY 05/11/24 05/11/24 Unknown History
mcg/actuation nasal
spray,suspension
lisinopril 20 2 tab PO DAILY 05/11/24 05/11/24 Unknown History
mg-hydrochlorothiazide 12.5 mg
tablet
Review of Systems
-
History Source: Patient
Constitutional: No Symptoms
EENT: No Symptoms
Respiratory: No Symptoms
Cardiac: No Symptoms
Abdomen/GI: No Symptoms
: No Symptoms
Skin: No Symptoms
Neuro: No Symptoms
Endocrine: No Symptoms
Hematologic/Lymphatic: No Symptoms
Vitals / Labs / Diagnostic Testing
Vital Signs
Temp Pulse Resp BP Pulse Ox
98.6 F 111 21 132/75 96
05/12/24 02:45 05/12/24 06:00 05/12/24 06:00 05/12/24 06:00 05/12/24 06:00
Lab Data
05/12/24 04:37
Laboratory Results
05/11/24 05/11/24 05/12/24
21:42 22:34 04:37
PT 14.2 14.7 H
INR 1.07 1.12
APTT 31.1 Cancelled 37.4 H
05/12/24
04:50
PT
INR
APTT Cancelled
Diagnostic Testing:
Physical Exam
-
HEENT: Normocephalic and Anicteric
Cardiovascular: S1/S2, Regular Rhythm and Other (No murmur or rubs)
Respiratory: Clear and Non-Labored Respirations
GI: Soft, Distended (Abdominal obesity) and Normal Bowel Sounds
Neurology: Awake, Oriented and No Motor Deficits
Skin: Warm and Dry
General: Other (On high flow oxygen at 50 L/min)
Assessment
-
Impression
Patient is a 74-year-old male, with history of fall about 2 weeks ago resulting in a right shoulder injury/humerus fracture and right leg patient was being seen by Ortho and wound care center on outpatient basis and he was scheduled for a TSA on
05/14/2024. Yesterday, he was getting ready for bed when he started to feel dizzy and short of breath. He continued to experience the symptoms and became tachycardic, tachypneic, called EMS, EKG was done in the ER that had classic picture of
S1Q3T3, CT chest was done that showed multiple pulmonary emboli with a saddle embolus involving the bifurcation of the pulmonary trunk along with mild right heart strain.Patient was immediately started on heparin infusion and IR was consulted.
Patient underwent catheter directed thrombolysis without any issues. Currently patient is on high flow oxygen at 50 L/min. Patient stable, tolerated the procedure well, on heparin at 600 milligram per hour and tPA 1 mg/h. Imaging to be repeated
in afternoon. Patient in critical care for the next 24 hours for observation.
Assessment
# Acute hypoxemic respiratory failure secondary to massive saddle pulmonary embolus
# Elevated troponin likely secondary to demand ischemia
# Essential hypertension
# Hyperlipidemia
# Obstructive sleep apnea
Plan
# Acute hypoxemic respiratory failure secondary to massive saddle pulmonary embolus
Had catheter directed thrombolysis with tPA today
Continue heparin at 600 mg/h and tPA at 1 mg/h as per IR
Currently on high flow oxygen at 50 L/min
Repeat imaging to assess the status of pulmonary embolus and tPA effectiveness
Continue to observe the vitals
# Elevated troponin likely secondary to demand ischemia
Troponin on admission 0.4, peaked up to 1.8
No signs and symptoms of cardiac ischemia, most likely this is demand ischemia from pulmonary embolism
Cardiology consult appreciated-Serial troponin I, update echocardiography, maybe stress test by cardiology
# Essential hypertension
Resume home medications as able
# Hyperlipidemia
Continue home dose of statin
# Obstructive sleep apnea
Patient uses CPAP at home
Supplemental oxygen as needed to keep oxygen saturation greater than 90-94
Keep potassium greater than 4 and magnesium greater than 2
Continue home meds as able
Add Tylenol for moderate pain
For severe pain use morphine
CODE STATUS full code
DVT prophylaxis-on heparin infusion and tPA
[2024-05-12] MEDS: ORETIC 12.5 MG PO ×2 (08:20→11:52)
[2024-05-12] MEDS: NORVASC 2.5 MG PO (08:21)
[2024-05-12] MEDS: ZESTRIL 20 MG PO ×2 (08:21→11:52)
[2024-05-12] MEDS: LIPITOR 20 MG PO (08:21)
--- NOTE | 2024-05-12 08:25 | CON.CAR ---
Addendum entered and electronically signed by Kirill Lorenzana MD 05/13/24 09:49:
Late entry: This entry was completed 05/12/2024: Not added to consultation until 05/13/2024
74-year-old man admitted with shortness of breath following right humeral fracture and found to have massive saddle pulmonary embolus on CT imaging. Troponin 0.2. Catheter directed thrombolysis administered and currently ongoing.
PMH: Obstructive uropathy/BPH, hyperlipidemia, peripheral neuropathy, hypertension, sleep apnea, hypothyroidism
SH: Non-smoker, no alcohol,
FH: Noncontributory
PSH: Orthopedic, right elbow, dermatologic
ROS: Negative except as above
147/77, pulse 95, resp rate 15, afebrile, sats are 96% with mid flow/high flow head neck exam unremarkable, lungs are relatively clear, right humeral fracture, regular rate and rhythm, no obvious murmurs, JVD hard to assess, abdomen obese,
extremities massive hematoma on left taveras, presumed source of thrombus
Hemoglobin 10.7, white count 9.4, platelets now 108 had been 180, BUN and creatinine 20 and 0.7, potassium 3.8, peak troponin 1.8
CT chest, massive saddle pulmonary embolus, three-vessel coronary artery calcification, Pulmonary nodule, tumor board notified
ECG yesterday: Sinus tachycardia, S1 Q3, nonspecific ST and T changes
ECG today: Normal sinus rhythm rate 100, no acute changes, S1 Q3
Echo: Pending
Impression:
Saddle pulmonary embolus with hemodynamic embarrassment
Recent humeral fracture
Three-vessel coronary artery calcification
Hypercholesterolemia
Obstructive sleep apnea
BPH/obstructive uropathy
Hypertension
Hyperlipidemia
Plan:
He presents with multiple pulmonary emboli including large saddle pulmonary embolus producing hemodynamic compromise and currently being treated with directed lytic therapy. Despite this, he seems to be doing reasonably well, with decrease in heart
rate - currently he looks comfortable.
Await echocardiogram for evidence of right heart strain, which will likely be apparent. Right heart strain is likely the cause of his elevated troponin.
He has extensive coronary calcification on the CT scan. Given his troponin, although this is likely related to his pulmonary embolism, it would be reasonable to perform a pharmacologic sestamibi study once he is stable.
IR suspicious of atrial septal defect, will await echocardiogram
Optimization of lifestyle factors/etc. will be important.
Continue supportive care.
Original Note:
Consultation
Consultation Request
Date/Time Consultation Requested: 05/11/24 at 2321
Date/Time Consultation Performed: 05/12/24 at 0900
Requesting Provider: Dr. Gonsales
Performing Provider: Dr. REINALDO Lorenzana
Reason for Consultation: Elevated Troponin, PE
Medical History
-
History of Present Illness:
Patient came to [facility] last night with dizziness and SOB and was admitted with saddle PE and cardiology is now consulted for elevated Troponin. Patient was seen in [facility] after a trip and fall on 04/23/24 and landed on his right shoulder and scarped his
right taveras. X-rays in the ER showed right humerus fracture and patient was d/c'd to home to follow up with Ortho and is currently scheduled for outpatient TSA. In the meantime he was back in [facility] on 04/28/24 with increased RLE hematoma and was
referred to the wound care center. Patient says he felt well and stood to go to bed at about 2015 last night when he felt dizzy and SOB. He was able to climb a flight of stairs and perform his bedtime routine in the bathroom, but symptoms continued
and he called 911. When EMS arrived he was hypoxic and tachycardic. In [facility] CT chest revealed saddle PE and IR was called for lytic therapies based on overall CT findings. Cardiology is consulted for elevated Troponin. Patient denies chest pain. He
does not follow with a due diligence coordinator, but had a stress test elsewhere 10+ years ago for unclear reasons. He had an echo more recently, but report not available and he had MR at that time. He has had other falls in the past and previously fractured
his left elbow. He has peripheral neuropathy.
PMH:
Recent ER visit for trip and fall with right humerus fracture and RLE hematoma 04/23/24
Recent ER visit for RLE hematoma and wound care 04/28/24
HTN
Hyperlipidemia
RENA on CPAP
Hyperglycemia and h/o prediabetes
MR by echo possibly in 2021
Past Medical History
Past Medical History: Other (in HPI)
Past Surgical History: Orthopedic (left shoulder)
Social History
Tobacco: Non-Smoker
Alcohol: None
Drug: None
Personal:
Living: With Family
Family History
Family History: Other (son with Afib and NSVT)
Allergies / Home Medications
Allergy/AdvReac Type Severity Reaction Status Date / Time
No Known Allergies Allergy Verified 05/11/24 21:41
�Medication �Instructions �Recorded �Confirmed �Type
amlodipine 2.5 mg tablet 2.5 mg PO DAILY 05/11/24 05/11/24 History
aspirin 81 mg tablet,delayed 81 mg PO DAILY 05/11/24 05/11/24 History
release
atorvastatin 20 mg tablet 20 mg PO DAILY 05/11/24 05/11/24 History
fluticasone propionate 50 2 spray intranasal DAILY 05/11/24 05/11/24 History
mcg/actuation nasal
spray,suspension
lisinopril 20 2 tab PO DAILY 05/11/24 05/11/24 History
mg-hydrochlorothiazide 12.5 mg
tablet
Review of Systems
-
History Source: Patient
All other systems: Negative unless noted
Physical Exam
Vital Signs
Temp Pulse Resp BP Pulse Ox
98.6 F 111 21 132/75 96
05/12/24 02:45 05/12/24 06:00 05/12/24 06:00 05/12/24 06:00 05/12/24 06:00
GEN: NAD. AAOx3
HEENT: EOMI, MMM
LUNGS: High flow 55 L at 40%, clear anterolaterally without wheeze
CV: SR on tele. Reg, S1/S2, no murmur
ABD: soft, BS+, NT, ND
EXT: RLE MEGHANA wrap in place with protuberance at the right calf. LLE trace edema without lesions.
NEURO: Gross non-focal
SKIN: Warm, dry and pink. No rash
Lab Results
05/12/24 04:37
Troponin I 1.800 ng/ml H* D 05/12/24 04:37
Impression / Plan
-
PCP: Jimmy JOHNSON at [facility]
Card: None, son follows with Dr. Soto
Impression:
Admitted with saddle PE 05/11/24
Saddle PE
s/p lytic therapy started 05/11/24 PM
Acute hypoxic respiratory failure
Elevated Troponin
Recent ER visit for trip and fall with right humerus fracture and RLE hematoma 04/23/24
Recent ER visit for RLE hematoma and wound care 04/28/24
HTN
Hyperlipidemia
RENA on CPAP
Hyperglycemia and h/o prediabetes
MR by echo possibly in 2021
Echo 05/12/24: Study pending
Plan:
-Patient came to [facility] last night with dizziness and SOB and was admitted with saddle PE and cardiology is now consulted for elevated Troponin. Patient was seen in [facility] after a trip and fall on 04/23/24 and landed on his right shoulder and scarped his
right taveras. X-rays in the ER showed right humerus fracture and patient was d/c'd to home to follow up with Ortho and is currently scheduled for outpatient TSA. In the meantime he was back in [facility] on 04/28/24 with increased RLE hematoma and was
referred to the wound care center. Patient says he felt well and stood to go to bed at about 2014 last night when he felt dizzy and SOB. He was able to climb a flight of stairs and perform his bedtime routine in the bathroom, but symptoms continued
and he called 911. When EMS arrived he was hypoxic and tachycardic. In [facility] CT chest revealed saddle PE and IR was called for lytic therapies based on overall CT findings. Cardiology is consulted for elevated Troponin. Patient denies chest pain. He
does not follow with a due diligence coordinator, but had a stress test elsewhere 10+ years ago for unclear reasons. He had an echo more recently, but report not available and he had MR at that time. He has had other falls in the past and previously fractured
his left elbow. He has peripheral neuropathy.
-ECG x2 reviewed by me is SR/Stach without acute ischemic changes
-Tele reviewed by me looks like SR without arrhythmia.
-Troponin was 0.204 on admission and then up to 1.8. Will trend.
-Check echo when able to sit up and roll.
-Currently still has lytic catheter with therapy running. IR to reassess today and possibly turn off lytics.
-No chest pain, no ischemic changes and echo pending. For now will manage Troponin elevation as nonischemic myocardial injury Troponin elevation due to PE.
-Heparin gtt running.
-Outpatient dose of aspirin on hold.
-Outpatient dose of lisinopril 40/25 mg daily has changed to lisinopril 20 mg daily and HCTZ 12.5 mg daily for now. BP 150/79 this morning.
-Outpatient dose of amlodipine 2.5 mg daily has been continued.
-Patient is chronically on atorvastatin 20 mg daily for hyperlipidemia.
-Patient has been hyperglycemic and has a h/o prediabetes. Check HgbA1c
--- NOTE | 2024-05-12 08:30 | PTCARENOTE ---
Pt. handoff completed at 0700. TPA/Heparin infusing at correct rates, site checks WNL. GCS 15, normocephalic/atraumatic, focally intact. Pupils =/r 3mm w. brisk response. Movement in all extrem equally, however due to previous humeral fracture in R
arm, pt is unable to bend or fully lift arm. Baseline peripheral neuropathy per pt. no sensation issues outside of his baseline. Tachycardic w.o ectopy noted. Normotensive. Normothermic. Pulses present w. doppler. Eduardo in place, making adequate
urine. Due to previous mechanical fall at a restaurant weeks prior, pt. developed wound on R taveras which he is following wound care for outpatient. Wound is wrapped in Isaías bandage, due to sheath site being on R groin, unable to bend or lift pt. leg
to remove isaías bandage to assess wound at this time.
--- NOTE | 2024-05-12 09:14 | W.PN.HOSP.TC ---
Today's Communication/Plan
-
.
Assessment / Plan
Assessment / Plan
1. Acute hypoxic respiratory failure 2/2 massive PE/saddle embolus
-Catheter directed thrombolysis (appreciate IRADS) :
-5 mg tPA bolus, tPA drip at 1 mg/h
-Heparin at 600 units/h
-High flow oxygen: Currently at 50L/min
2. Elevated Troponin
-Likely demand ischemia in the setting of acute pulmonary embolus
-Troponin on admission 0.4 => 1.8 this a.m.
-Check serial EKGs
-Cardiac echo
-Consult cardiology
3. Essential HTN
-Continue Norvasc 2.5 Mg p.o. daily
-Continue lisinopril/HCTZ 20/12.5 mg twice daily
4. Hyperlipidemia
-Continue atorvastatin 20 mg daily
5. Morbid obesity/RENA
Full code/heparin/n.p.o.
Anticipated Discharge: 24 - 48 hours
Subjective/Interval History
-
Date of Service: May 12, 2024
Patient seen and examined while resting comfortably in bed. No new complaints morning. Patient states that his breathing is doing much better than on presentation.
Reviewed HPI with patient. Briefly, patient with a history of fall last week with right shoulder injury and right knee injury after misstep on stairs. Patient was seen being seen by Ortho and scheduled to have surgery on 05/14. Yesterday, patient
was sent home in his (otherwise) usual state of health when he began to feel dizzy and short of breath. Dizziness persisted so he called EMS who noted that he was hypoxic and tachycardic. In ED, CTA of the chest showed multiple pulmonary emboli
with a saddle embolus involving the bifurcation of the pulmonary trunk. Severe clot burden. Signs of mild right heart strain.
Objective Data
-
Labs:
Laboratory Results
05/11/24 05/11/24 05/12/24
21:42 22:34 01:12
WBC 8.8 Cancelled
Hgb 11.3 L Cancelled
Hct 33.3 L Cancelled
Plt Count 180 Cancelled
PT 14.2
INR 1.07
APTT 31.1 Cancelled
Sodium 137
Potassium 3.4 L
Chloride 100
Carbon Dioxide 28
BUN 23 H
Creatinine 0.8
Glucose 154 H
Calcium 9.0
Total Bilirubin 0.9
AST 44
ALT 31
Alkaline Phosphatase 117
05/12/24 05/12/24 05/12/24
04:37 04:50 12:00
WBC 9.4 Pending
Hgb 10.7 L Pending
Hct 31.9 L Pending
Plt Count 108 L D Pending
PT 14.7 H Pending
INR 1.12 Pending
APTT 37.4 H Cancelled Pending
Sodium 139
Potassium 3.8
Chloride 106
Carbon Dioxide 26
BUN 20
Creatinine 0.7
Glucose 115 H
Calcium 8.6
Total Bilirubin
AST
ALT
Alkaline Phosphatase
05/12/24
18:00
WBC Pending
Hgb Pending
Hct Pending
Plt Count Pending
PT Pending
INR Pending
APTT Pending
Sodium
Potassium
Chloride
Carbon Dioxide
BUN
Creatinine
Glucose
Calcium
Total Bilirubin
AST
ALT
Alkaline Phosphatase
Vital Signs:
Vital Signs
Temp Pulse Resp BP Pulse Ox
97.8 F 111 21 132/75 97
05/12/24 07:55 05/12/24 06:00 05/12/24 06:00 05/12/24 06:00 05/12/24 09:03
I&O
05/11/24 05/12/24 05/13/24
06:59 06:59 06:59
Intake Total 424 / 530 212 / 212
Output Total 1400 / 1400 225 / 225
Balance -976 / -870 -
Review of Systems
-
History Source: Patient
Constitutional: Reports No Symptoms
Respiratory: Reports Trouble Breathing (Improved from yesterday)
Cardiac: Reports No Symptoms
Abdomen/GI: Reports No Symptoms
Musculoskeletal: Reports Other (No calf tenderness)
Neuro: Reports No Symptoms
Physical Exam
-
General: Well Developed, Well Nourished and Comfortable
HEENT: Normocephalic, Atraumatic and Anicteric
Respiratory: Non Labored Respirations and Decreased Breath Sounds (To the left lung; clear to auscultation in the right lung la); Negative Wheezes, Rales, Rhonchi or Crackles
Cardiac: Regular Rhythm, S1/S2 and Tachycardic; Negative Murmur, Rub, Calf Tenderness or Kavin's Sign
GI: Soft and Nontender
Musculoskeletal: No Clubbing and No Cyanosis
Skin: Warm and Dry
Neuro: Awake, Alert and Oriented
Psych: Calm
Data Reviewed
-
CT Scan: Report Reviewed by me
Labs: Labs Reviewed by me
--- NOTE | 2024-05-12 10:05 | VNURNOTE ---
Chart reviewed.� Patient is current with [facility] nursing.� Will continue to follow hospital course and DC plans.
--- NOTE | 2024-05-12 11:29 | CM ---
CM following re: discharge planning.
Discussed in Rounds, reviewed pt's chart, met with pt.
Pt is a 74 year old male, admitted with primary dx of Acute hypoxic respiratory failure due to massive PE. Per Rounds meeting, pt requires 55 L HFNC with FIO2 55%, continue supportive care.
Pt reports he lives with spouse 2SH, 3 steps to enter, has 3 supportive children. 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 No DME, VN or SNF history.
PCP: Jimmy Iglesias
Pharmacy: [facility]
D/C plan: home with anticipated no needs.
CM will follow with discharge plan updates as hospitalization progresses
[2024-05-12 11:46] LABS: Hematocrit 30.7 % (39.0-52.0); Hemoglobin 10.4 g/dL (13.0-18.0); Mean Corp Hgb Conc. 33.9 g/dL (33.0-37.0); Mean Corpuscular Hgb 29.8 pg (27.0-31.0); Mean Platelet Volume 9.2 fL (7.4-10.4); Platelet Count 108 10^3/uL (130-400); Red Blood Cell Count 3.49 10^6/uL (4.70-6.10); Red Cell Dist. Width 14.2 % (11.5-14.5); White Blood Cell Count 8.7 10^3/uL (4.8-10.8)
[2024-05-12 12:37] LABS: INR 1.17; PT 15.2 Sec (11.4-14.6)
[2024-05-12 12:38] LABS: APTT 35.5 Sec (23.4-35.0); Fibrinogen 395 MG/DL (199-459)
[2024-05-12 13:15] LABS: Glycohemoglobin (HgbA1c) 5.7 % (4.0-5.6)
--- NOTE | 2024-05-12 13:52 | PTCARENOTE ---
Pt to IR for pulmonary angiography.
--- NOTE | 2024-05-12 15:05 | PTCARENOTE ---
Received pt from IR. VSS. Heparin and TPA stopped with cordis and TPA cath removal. Pt to remain flat for 1 hr.
--- NOTE | 2024-05-12 16:11 | WOUNDNOTE ---
R LEG SIDE VIEW
--- NOTE | 2024-05-12 16:13 | WOUNDNOTE ---
R LEG ANTERIOR VIEW
[2024-05-12 16:16] LABS: Hematocrit 32.4 % (39.0-52.0); Hemoglobin 10.8 g/dL (13.0-18.0); Mean Corp Hgb Conc. 33.3 g/dL (33.0-37.0); Mean Corpuscular Hgb 29.4 pg (27.0-31.0); Mean Corpuscular Volume 88.3 fL (80.0-94.0); Mean Platelet Volume 8.7 fL (7.4-10.4); Platelet Count 112 10^3/uL (130-400); Red Blood Cell Count 3.67 10^6/uL (4.70-6.10); Red Cell Dist. Width 14.1 % (11.5-14.5); White Blood Cell Count 9.6 10^3/uL (4.8-10.8)
--- NOTE | 2024-05-12 16:18 | WOUNDNOTE ---
WON RN note: Patient admitted with Saddle embolus of pulmonary artery, s/p TPA thrombolysis 2.
See H&P for complete history. Lives with at home. Goes to [facility] for R leg wound.
PMH: Recent fall causing swelling to R leg and abrasion, R humerus fracture. Skin cancer-Moh's, HTN.
Wound Location and type/assessment: Patient admitted with: R lower leg abrasion to taveras with soft tissue swelling, no fracture per x ray on 04/23/24. + palpable pedal pulse. Reviewed current treatment being done at wound center by Dr. Morel.
Local wound care and knee high compression with khadijah wrap, leg elevation. confirmed this and reports R leg looks better compared to last week, has weekly apt's on at [facility]. Soft swelling to leg, suspect hematoma underneath. Heels are
intact and has a chronic skin growth on L plantar foot. Patient states he follows with cell tester for that. R elbow with friction/shearing, from wearing sling patient states. Shallow open area, scant drainage. Turned patient with assist of nurse
[place], sacrum and buttocks are intact.
Appetite: Good.
Pressure redistribution devices in place: On air mattress, can be on Accumax when transferred to floor.
Plan: Applied foam adhesive to elbow and elevated on pillow. R leg applied adaptic, dry dressing and knee high khadijah wrap. Elevated leg with pillow and under calves to offload heels. Will confirm orders with hospitalist and update nurse.
Updated care plan and will follow as needed. Recommend ultrasound if swelling does not go down more.
Note to case management of equipment requested for discharge: VN for wound care.
Recommend follow up at wound care center upon discharge.
--- NOTE | 2024-05-12 16:22 | PTCARENOTE ---
HOB elevated without issue. VSS. manager net to bedside and dressing change complete-see note. Site, pulses checked as ordered. Diet advanced. Forest Botany Instructor to bedside to discuss IR findings and plan of care.
[2024-05-12 16:23] LABS: APTT 33.4 Sec (23.4-35.0)
[2024-05-12] MEDS: HEPARIN 25000 UNITS/250 ML IV ×2 (17:01→23:20)
--- NOTE | 2024-05-12 21:23 | PTCARENOTE ---
Received pt @ 1900 resting comfortably in bed. AAOx3, NSR in the 90's on the monitor, denies pain and offers no complaints. SpO2 94% on 4L O2 via midflow nasal cannula. +bowel sounds in all quadrants, tolerating PO intake. +li draining yellow
urine. Neurovascular checks WNL, R femoral vein site with C/D/I bandaid, see flowsheet. Heparin gtt infusing @ 2000units/hr. Pt updated on POC for the evening, resting comfortably in bed, call peguero in hand.
--- NOTE | 2024-05-12 23:25 | PTCARENOTE ---
Patient received in bed, asleep, oriented x3. NSR on monitor, afebrile, blood pressure as documented. Palpable pulses. lungs diminished, pulse ox 95% on 4L. Denies SOB. Abdomen round with positive bowel sounds. Eduardo catheter draining nickolas
urine. Right groin dressing intact. Isaías bandage maintained on right leg. #20 g in right hand with Heparin gtt infusing as documented. #22 g in left hand, #20 g in LAC flushed and patent
[2024-05-12 23:57] LABS: APTT 47.5 Sec (23.4-35.0)
[2024-05-13] VITALS (18 sets, daily range): BP systolic 127–170; BP diastolic 59–96; PULSE 91; O2SAT 94; BMI 41.9
[2024-05-13 06:23] LABS: APTT 123.7 Sec (23.4-35.0)
[2024-05-13 06:33] LABS: Blood Urea Nitrogen 16 mg/dl (9-20); Calcium 8.4 mg/dl (8.4-10.2); Carbon Dioxide 26 mmol/L (22-30); Chloride 105 mmol/L (98-107); Estimated Creatinine Clearance > 125 ml/min; Glucose 111 mg/dl (70-99); Magnesium 2.3 mg/dl (1.6-2.3); Potassium 3.6 mmol/L (3.5-5.1); Sodium 136 mmol/L (135-145); eGFR > 60.00
[2024-05-13 07:49] LABS: Hemoglobin 10.6 g/dL (13.0-18.0); Mean Corp Hgb Conc. 33.1 g/dL (33.0-37.0); Mean Corpuscular Volume 90.7 fL (80.0-94.0); Mean Platelet Volume 9.1 fL (7.4-10.4); Platelet Count 112 10^3/uL (130-400); Red Blood Cell Count 3.53 10^6/uL (4.70-6.10); Red Cell Dist. Width 14.1 % (11.5-14.5); White Blood Cell Count 7.4 10^3/uL (4.8-10.8)
[2024-05-13] MEDS: ORETIC 25 MG PO (07:51)
[2024-05-13] MEDS: LIPITOR 20 MG PO (07:51)
[2024-05-13] MEDS: ZESTRIL 40 MG PO (07:51)
[2024-05-13] MEDS: NORVASC 2.5 MG PO (07:51)
--- NOTE | 2024-05-13 08:30 | PTCARENOTE ---
Received pt @ 0700 resting comfortably in bed, assisted pt OOB to recliner with assist X1. AAOx3, NSR in the 90's on the monitor, denies pain and offers no complaints. SpO2 94% on 4L O2 via midflow nasal cannula. +bowel sounds in all quadrants,
tolerating PO intake. +li draining blood tinged urine, removed per protocol. Neurovascular checks WNL, R femoral vein site with C/D/I bandaid, see flowsheet. Heparin gtt infusing @ 2200units/hr. Pt updated on POC, resting comfortably in bed,
call peguero in hand.
--- NOTE | 2024-05-13 09:00 | W.PN.INTV ---
Today's Communication / Plan
Recommendations
Stop heparin and start Lovenox today
Shift to oral anticoagulants tomorrow
Can downgrade after PT/OT
Continue trending troponin I
Wean off oxygen as able
Physical therapy
Continue to monitor PTT
Assessment
-
Impression
Patient is a 74-year-old male, with history of fall about 2 weeks ago resulting in a right shoulder injury/humerus fracture and right leg patient was being seen by Ortho and wound care center on outpatient basis and he was scheduled for a TSA on
05/14/2024. Yesterday, he was getting ready for bed when he started to feel dizzy and short of breath. He continued to experience the symptoms and became tachycardic, tachypneic, called EMS, EKG was done in the ER that had classic picture of
[id number], CT chest was done that showed multiple pulmonary emboli with a saddle embolus involving the bifurcation of the pulmonary trunk along with mild right heart strain.Patient was immediately started on heparin infusion and IR was consulted.
Patient underwent catheter directed thrombolysis without any issues. Post procedure, patient was on high flow oxygen at 50 L/min, currently breathing on 5 L of oxygen. Patient stable, tolerated the procedure well, on heparin at 2200 units/h.
Repeated PA Gram showed slight improvement. Echocardiography done yesterday on 05/12/2024, showed normal left ventricular function and mild hypokinesia of right ventricle.
Assessment
# Acute hypoxemic respiratory failure secondary to massive saddle pulmonary embolus
# Elevated troponin likely secondary to demand ischemia
# Essential hypertension
# Hyperlipidemia
# Obstructive sleep apnea
Plan
# Acute hypoxemic respiratory failure secondary to massive saddle pulmonary embolus
Had catheter directed thrombolysis with tPA on 05/12/2024
PA Gram showed mild improvement, patient on heparin infusion at 2200 units/h
Stop heparin infusion,Shift to Lovenox
Can shift to oral anticoagulation tomorrow
Can downgrade to telemetry
Breathing on 5 L of oxygen, no tachypnea no tachycardia,wean off oxygen as able
Echocardiography shows normal left ventricular size and ejection fraction of 55 to 60% with mild right ventricular hypokinesia.
# Elevated troponin likely secondary to demand ischemia
Troponin on admission 0.4, peaked up to 1.8, now trending down to 1.3
No signs and symptoms of cardiac ischemia, most likely this is demand ischemia from pulmonary embolism
Cardiology consult appreciated-continue trending troponin I, continue heparin infusion, echocardiography done showing mild right ventricular hypokinesia
# Essential hypertension
Continue home medications
# Hyperlipidemia
Continue home dose of statin
# Obstructive sleep apnea
Patient uses CPAP at home
Supplemental oxygen as needed to keep oxygen saturation greater than 90-94
Keep potassium greater than 4 and magnesium greater than 2
Continue home meds as able
Add Tylenol for moderate pain
For severe pain use morphine
CODE STATUS full code
DVT prophylaxis-on heparin infusion at 2200 unit/h
Subjective Dataa
Subjective Data
Date of Service:
Date of Service: May 13, 2024
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
Subjective:
Patient breathing on 2 L of oxygen, sitting comfortably in chair
Maintaining saturations
Heart rate 85/min, no increased work of breathing, respiratory rate 15
Patient feeling well
Review of Systems
General: Other (Reviewed and negative)
Objective Data
Data Reviewed
Vital Signs / I&O / Oxygen:
Vital Signs
Temp Pulse Resp BP Pulse Ox
99.1 F 89 17 159/70 95
05/13/24 07:40 05/13/24 08:00 05/13/24 08:00 05/13/24 08:00 05/13/24 08:42
Intake and Output
05/12/24 05/13/24 05/14/24
06:59 06:59 06:59
Intake Total 424 / 530 1143 / 1168 47 / 47
Output Total 1400 / 1400 1870 / 1870 125 / 125
Balance -976 / -870 -727 / -702 -78 / -78
SaO2 95
Nasal Cannula flow liters per 4
minute
Physical Exam
General: Other (Well-nourished, well-built, conversant and sitting comfortably in chair, bandage in right lower leg)
HEENT: Normocephalic, Anicteric and Moist Mucous Membranes
Cardiovascular: S1-S2, Regular Rhythm and Other (No murmurs or rubs)
Respiratory: Clear, Non-Labored Respirations and Other (Breathing on 5L of oxygen)
GI: Soft, Non Distended, Non Tender and Normal Bowel Sounds
Neurology: Awake, Oriented and No Motor Deficits
Skin: Warm and Dry
Labs/Micro/Reports
Lab Data
05/13/24 05:57
05/13/24 05:57
Laboratory Results
05/12/24 05/12/24 05/12/24
11:34 15:55 18:00
PT 15.2 H Cancelled
INR 1.17 Cancelled
APTT 35.5 H 33.4 Cancelled
05/12/24 05/13/24
23:10 05:57
PT
INR
APTT 47.5 H 123.7 H
--- NOTE | 2024-05-13 09:49 | W.PN.CARDCBS ---
Today's Communication / Plan
-
Stable cardiac status
Continue amlodipine, atorvastatin, lisinopril HCTZ
We will arrange for outpatient cardiac follow-up
DOAC as per primary service and pulmonary
Stop aspirin
Impression / Plan
-
PCP: Jimmy JOHNSON at [facility]
Card: None, son follows with Dr. Soto
Impression:
Admitted with saddle PE 05/11/24
Saddle PE
s/p lytic therapy started 05/11/24 PM
Acute hypoxic respiratory failure
Elevated Troponin
Coronary artery calcification
Recent ER visit for trip and fall with right humerus fracture and RLE hematoma 04/23/24
Recent ER visit for RLE hematoma and wound care 04/28/24
HTN
Hyperlipidemia
RENA on CPAP
Hyperglycemia and h/o prediabetes
MR by echo possibly in 2021
Echo 05/12/24: EF 55-60% mild LVH, dilated RV, possibly hypokinetic, no evidence of atrial septal defect, normal atria, trace mitral regurgitation, pulmonary artery systolic pressure 24
Plan:
Despite bilateral pulmonary emboli with saddle embolus and elevated troponin he looks well and is hemodynamically stable and improved.
He is hypertensive but back on amlodipine, and lisinopril hydrochlorothiazide
Is transitioning to low molecular weight heparin and subsequent DOAC.
Elevated troponin was likely related to right heart strain from massive pulmonary embolus. He does have substantial coronary artery calcification.
Given elevated troponin and coronary artery calcification, we will arrange for outpatient cardiac follow-up.
Mild thrombocytopenia possibly related to lytic therapy, defer to hospitalist service, suspect this will be a self-limited issue
Stop aspirin once DOAC is initiated. Continue amlodipine, lisinopril HCT, and atorvastatin.
We will sign off, please call if questions.
Progress Note - First Officer
Subjective
Date of Service: May 13, 2024:
74-year-old man admitted with shortness of breath following right humeral fracture with right tibial injury and found to have massive saddle pulmonary embolus on CT imaging. Troponin 0.2. Catheter directed thrombolysis administered.
Currently offers no complaints, sitting in chair, right arm is in sling
Current medications: Amlodipine 2.5 mg daily, atorvastatin 20 mg a day, hydrochlorothiazide 25 mg daily, lisinopril 40 mg a day and intravenous heparin, tPA has been discontinued
159/70, pulse 90, resp rate 17, afebrile, sats 95%, intake and output -0.9 L, weight is 125.1 kg, lungs are relatively clear head neck exam unremarkable, mild edema left lower extremity right leg wrapped with large hematoma, arm in sling, regular
rate and rhythm, very soft systolic murmur at left upper sternal border, abdomen benign extremities without clubbing cyanosis or edema, neuro nonfocal
Pulmonary arteriography 05/12/2024: Significant improvement in pulmonary artery clot burden
Hemoglobin 10.6, platelets 112, BUN and creatinine 16 and 0.6, peak troponin 1.8, most recent troponin 1.4, potassium is 3.6
Echo: EF 55-60%, RV is dilated, possibly hypokinetic, pulmonary artery pressure is 24
Objective
Labs:
05/13/24 05:57
05/13/24 05:57
Labs
Hgb 10.6 g/dL (13.0-18.0) L 05/13/24 05:57
Hct 32.0 % (39.0-52.0) L 05/13/24 05:57
Plt Count 112 10^3/uL (130-400) L 05/13/24 05:57
PT Cancelled 05/12/24 18:00
INR Cancelled 05/12/24 18:00
APTT 123.7 Sec (23.4-35.0) H 05/13/24 05:57
Sodium 136 mmol/L (135-145) 05/13/24 05:57
Potassium 3.6 mmol/L (3.5-5.1) 05/13/24 05:57
BUN 16 mg/dl (9-20) 05/13/24 05:57
Creatinine 0.6 mg/dL (0.7-1.3) L 05/13/24 05:57
Glucose 111 mg/dl (70-99) H 05/13/24 05:57
Troponins
05/11/24 05/12/24 05/12/24
21:42 04:37 11:34
Troponin I 0.204 H* 1.800 H* D 1.380 H*
05/12/24
16:00
Troponin I Cancelled
Vital Signs and I&O:
Vital Signs
Temp Pulse Resp BP Pulse Ox
37.3 C 89 17 159/70 95
05/13/24 07:40 05/13/24 08:00 05/13/24 08:00 05/13/24 08:00 05/13/24 08:42
Vital Signs
Temp Pulse Resp BP Pulse Ox
37.3 C 89 17 159/70 95
05/13/24 07:40 05/13/24 08:00 05/13/24 08:00 05/13/24 08:00 05/13/24 08:42
Intake & Output
05/11/24 05/12/24 05/13/24 05/14/24
07:59 07:59 07:59 07:59
Intake Total 530 / 636 1062 / 1084 44 / 44
Output Total 1400 / 1625 1994 50 / 50
Balance -870 / -989 -933 / -911 -6 / -6
Physical Exam
Physical Exam
See above
[2024-05-13] MEDS: LOVENOX 120 MG SC ×2 (11:10→22:32)
--- NOTE | 2024-05-13 11:28 | PTCARENOTE ---
Pt OOB to chair with assist X1. Heparin gtt off with start of lovenox.
--- NOTE | 2024-05-13 11:38 | W.PN.UPDATE ---
Update Note
Progress Note Update
I saw and evaluated the patient. I reviewed the resident�s note and agree with findings and plan as documented in the resident�s note.
No new complaints. SOB has improved
Gen: NAD, AAOx3.
Eyes: EOMI, PERRLA, no scleral icterus.
Neck: supple.
CV: remains tachy, reg rhythm, +S1/S2, no m/r/g.
Resp: CTAB anteriorly, no rales, wheezes, or rhonchi.
Abd: +BS, soft, NT, ND
Skin: No rashes. RLE hematoma with skin breakdown
Neuro: CN 2-12 intact, non-focal.
Psych: Normal mood and affect.
CTA chest: Multiple pulmonary emboli with a saddle embolus involving the bifurcation of the pulmonary trunk. Severe clot burden. Signs of mild right heart strain.
Echo: Normal left ventricular chamber size. Normal left ventricular systolic
function. Left ventricular ejection fraction is 55-60% by visual assessment.
Normal regional wall motion. Mild concentric left ventricular hypertrophy.
Normal left ventricular wall thickness. Normal diastolic function.
Enlarged right ventricular size. Right ventricle was not well seen but may
have been hypokinetic.
Mildly dilated aortic root. Ao Sinus Diameter 3.9 cm.
Acute hypoxic respiratory failure due to massive PE/saddle embolus:
-IR initiated catheter directed thrombolysis. Pressures cannot be measured due to significant resistance advancing 7F APC catheter through the heart, possibly caught on chordae tendineae.
-was on alteplase gtt which was stopped 05/12/24. Currently on heparin gtt which will be transitioned to therapeutic Lovenox.
-was on 55L high flow, now weaned to 3L NC O2
-Echo above, see bold
-Elevated troponin, likely Type II [place] due to acute PE. Cards following.
Other problems:
Essential HTN: cont Norvasc/HCTZ/Lisinopril
HLD: cont statin
Morbid obesity due to excess calories
RENA
FULL/Lovenox
--- NOTE | 2024-05-13 11:46 | W.PN.HOSP.TC ---
Today's Communication/Plan
-
.
Assessment / Plan
Assessment / Plan
1. Acute hypoxic respiratory failure 2/2 massive PE/saddle embolus
-Catheter directed thrombolysis (appreciate IRADS):
-5 mg tPA bolus, tPA drip at 1 mg/h
-Heparin at 600 units/h
-Follow up PA-gram showed marked improvement
-Transitioned to Heparin Drip
-D/c heparin drip, transition to Lovenox
-Continue to monitor for signs of bleeding
-Wean O2 as tolerated; 3L NC today
2. Elevated Troponin
-Likely demand ischemia in the setting of acute pulmonary embolus
-Troponin on admission 0.4 => 1.8 (max) --> 1.3; can stop trending trop
- Appreciate cardiology reccs
3. Essential HTN
-Continue Norvasc 2.5 Mg p.o. daily
-Continue lisinopril/HCTZ 20/12.5 mg twice daily
4. Hyperlipidemia
-Continue atorvastatin 20 mg daily
5. Morbid obesity/RENA
Full code/heparin/n.p.o.
Anticipated Discharge: 24 - 48 hours
Anticipated Discharge: 24 - 48 hours
Subjective/Interval History
-
Date of Service: May 13, 2024
Patient seen and examined while resting comfortably, sitting up in chair on 3L NC this AM, eating breakfast. Patient states that he is feeling well with no acute complaints. Notes shortness of breath is improved from yesterday and markedly improved
from admission. Denies CP, SOB, lower extremity edema. States he was able to sleep well last night without issue. No signs of bleeding.
Objective Data
-
Labs:
Laboratory Results
05/12/24 05/13/24 05/13/24
23:10 05:57 13:00
WBC 7.4
Hgb 10.6 L
Hct 32.0 L
Plt Count 112 L
APTT 47.5 H 123.7 H Pending
Sodium 136
Potassium 3.6
Chloride 105
Carbon Dioxide 26
BUN 16
Creatinine 0.6 L
Glucose 111 H
Calcium 8.4
Vital Signs:
Vital Signs
Temp Pulse Resp BP Pulse Ox
99.1 F 103 18 127/96 95
05/13/24 07:40 05/13/24 10:00 05/13/24 10:00 05/13/24 10:00 05/13/24 10:00
I&O
05/12/24 05/13/24 05/14/24
06:59 06:59 06:59
Intake Total 424 / 530 1143 / 1168 113 / 113
Output Total 1400 / 1400 1870 / 1870 325 / 325
Balance -976 / -870 -727 / -702 -212 / -212
Review of Systems
-
History Source: Patient
Constitutional: Reports No Symptoms
Respiratory: Reports Trouble Breathing (markedly improved); Denies Cough
Cardiac: Reports No Symptoms
Abdomen/GI: Reports No Symptoms
Musculoskeletal: Reports No Symptoms
Neuro: Reports No Symptoms
Physical Exam
-
General: Well Developed, Well Nourished, Comfortable and Morbidly Obese; Negative Respiratory Distress
HEENT: Normocephalic, Atraumatic and Other (nasal cannula in place)
Respiratory: Clear to Auscultation (breath sounds more audible today); Negative Wheezes, Rales or Rhonchi
Cardiac: Regular Rhythm and S1/S2
GI: Soft
Musculoskeletal: No Clubbing, No Cyanosis and No Edema
Skin: Warm
Neuro: Awake and Alert
Psych: Calm
Data Reviewed
-
Medical Tests (Nuc Med, Echo etc): Report Reviewed by me
Labs: Labs Reviewed by me
--- NOTE | 2024-05-13 13:12 | CM ---
CM following re: discharge planning.
Discussed in Rounds, reviewed pt's chart, met with pt. Pt weaned off to 3L NC of O2, continue supportive care. Pt has no home Oxygen.
Pt lives with spouse 2SH, 3 steps to enter, has 3 supportive children. Pt described himself as independent in all areas [employer].
PT/OT evaluations pending.
D/C plan: home with anticipated no needs.
CM will follow with discharge plan updates as hospitalization progresses
--- NOTE | 2024-05-13 13:28 | TRANSFER ---
Pt transferred from ICU to [facility]. Pt walked from stretcher to bed. Right arm in sling, on 2L midflow O2. Pt oriented to room, no complaints of pain at this time. Call peguero within reach.
[2024-05-13 14:25] LABS: APTT 38.7 Sec (23.4-35.0)
--- NOTE | 2024-05-13 19:51 | W.PN.UPDATE ---
Update Note
Progress Note Update
Results from US Peripheral Venous b/l lower extremities shows there is occlusive thrombus in the left peroneal vein. Patient on Lovenox 120 mg SQ BID. Will continue current treatment plan overnight and will defer any changes to attending.
[2024-05-14 03:00] VITALS: BP 168/85
[2024-05-14 07:13] LABS: APTT 39.7 Sec (23.4-35.0)
[2024-05-14 07:16] VITALS: BP 162/93
[2024-05-14 07:16] LABS: Hematocrit 32.7 % (39.0-52.0); Hemoglobin 10.8 g/dL (13.0-18.0); Mean Corpuscular Hgb 29.3 pg (27.0-31.0); Mean Corpuscular Volume 88.6 fL (80.0-94.0); Red Blood Cell Count 3.69 10^6/uL (4.70-6.10); Red Cell Dist. Width 13.8 % (11.5-14.5); White Blood Cell Count 7.4 10^3/uL (4.8-10.8)
[2024-05-14 07:30] LABS: Blood Urea Nitrogen 17 mg/dl (9-20); Calcium 8.6 mg/dl (8.4-10.2); Carbon Dioxide 30 mmol/L (22-30); Chloride 102 mmol/L (98-107); Estimated Creatinine Clearance 123 ml/min; Glucose 116 mg/dl (70-99); Potassium 3.6 mmol/L (3.5-5.1); Sodium 137 mmol/L (135-145); eGFR > 60.00
[2024-05-14 07:35] LABS: Mean Platelet Volume 9.8 fL (7.4-10.4); Platelet Count 65 10^3/uL (130-400)
[2024-05-14] MEDS: NORVASC 2.5 MG PO (08:02)
[2024-05-14] MEDS: LIPITOR 20 MG PO (08:03)
[2024-05-14] MEDS: ORETIC 25 MG PO (08:03)
[2024-05-14] MEDS: ZESTRIL 40 MG PO (08:05)
--- NOTE | 2024-05-14 08:40 | W.PN.UPDATE ---
Update Note
Progress Note Update
I saw and evaluated the patient. I reviewed the resident�s note and agree with findings and plan as documented in the resident�s note.
No new complaints.
Gen: NAD, AAOx3.
Eyes: EOMI, PERRLA, no scleral icterus.
Neck: supple.
CV: continues to remain tachy, reg rhythm, +S1/S2, no m/r/g.
Resp: remains CTAB anteriorly, no rales, wheezes, or rhonchi.
Abd: +BS, soft, NT, ND
Skin: No rashes.
Neuro: CN 2-12 intact, non-focal.
Psych: Normal mood and affect.
CTA chest: Multiple pulmonary emboli with a saddle embolus involving the bifurcation of the pulmonary trunk. Severe clot burden. Signs of mild right heart strain.
Echo: Normal left ventricular chamber size. Normal left ventricular systolic
function. Left ventricular ejection fraction is 55-60% by visual assessment.
Normal regional wall motion. Mild concentric left ventricular hypertrophy.
Normal left ventricular wall thickness. Normal diastolic function.
Enlarged right ventricular size. Right ventricle was not well seen but may
have been hypokinetic.
Mildly dilated aortic root. Ao Sinus Diameter 3.9 cm.
Acute hypoxic respiratory failure due to massive PE/saddle embolus:
-IR initiated catheter directed thrombolysis. Pressures cannot be measured due to significant resistance advancing 7F APC catheter through the heart, possibly caught on chordae tendineae.
-was on alteplase gtt which was stopped 05/12/24. Was on heparin gtt, then transitioned to therapeutic Lovenox. Stop Lovenox and start Eliquis.
-was on 55L high flow, now weaned to 2L NC O2
-Echo above, see bold
-Elevated troponin, likely Type II [place] due to acute PE. Cards following.
Other problems:
Essential HTN: HCTZ/Lisinopril. Increase Norvasc to 10mg daily.
HLD: cont statin
Morbid obesity due to excess calories
RENA
FULL/Lovenox
[2024-05-14] MEDS: ELIQUIS 10 MG PO ×2 (09:36→19:54)
[2024-05-14 10:51] VITALS: BP 144/76
--- NOTE | 2024-05-14 11:13 | W.PN.HOSP.TC ---
Today's Communication/Plan
-
Transition to Eliquis. Norvasc increased to 10mg PO daily. Wean O2 as sherman. Monitor for signs of bleeding, follow up CBCs.
Assessment / Plan
Assessment / Plan
1. Acute hypoxic respiratory failure 2/2 massive PE/saddle embolus
-Catheter directed thrombolysis (appreciate IRADS):
-5 mg tPA bolus, tPA drip at 1 mg/h
-Heparin at 600 units/h
-Follow up PA-gram showed marked improvement
-Transitioned to Heparin Drip
-Transitioned to Lovenox
-Transition to Eliquis today
-Continue to monitor for signs of bleeding
-Wean O2 as tolerated; 2L NC today and improving
2. Elevated Troponin (resolved)
-Likely demand ischemia in the setting of acute pulmonary embolus
-Troponin on admission 0.4 => 1.8 (max) --> 1.3; can stop trending trop
- Appreciate cardiology reccs
3. Essential HTN
-Increase Norvasc to 10 mg daily
-Continue lisinopril/HCTZ 20/12.5 mg twice daily
4. Hyperlipidemia
-Continue atorvastatin 20 mg daily
5. Morbid obesity/RENA
6. Thrombocytopenia
- Likely in the setting of Lovenox, transitioned to Eliquis
- Monitor CBC in AM
Full code/heparin/Regular
Anticipated Discharge: Within 24 hours
Subjective/Interval History
-
Date of Service: May 14, 2024
Patient seen and examined while sitting up comfortably in chair, on 2L NC. Patient denies any acute complaints this morning. States the shortness of breath is markedly improved since admission and he is doing well on 2L by SC right now. Patient
denies and chest pain, cough, lower extremity pain, bleeding/bruising.
Objective Data
-
Labs:
Laboratory Results
05/14/24
06:47
WBC 7.4
Hgb 10.8 L
Hct 32.7 L
Plt Count 65 L D
APTT 39.7 H
Sodium 137
Potassium 3.6
Chloride 102
Carbon Dioxide 30
BUN 17
Creatinine 0.7
Glucose 116 H
Calcium 8.6
Vital Signs:
Vital Signs
Temp Pulse Resp BP Pulse Ox
97.8 F 101 22 144/76 92
05/14/24 10:51 05/14/24 10:51 05/14/24 10:51 05/14/24 10:51 05/14/24 11:03
I&O
05/13/24 05/14/24 05/15/24
06:59 06:59 06:59
Intake Total 1143 / 1168 1553 / 1553
Output Total 1870 / 1870 1025 / 1025
Balance -727 / -702 528 / 528
Review of Systems
-
History Source: Patient
Constitutional: Reports No Symptoms
Respiratory: Reports No Symptoms
Cardiac: Reports No Symptoms
Musculoskeletal: Reports No Symptoms
Neuro: Reports No Symptoms
Physical Exam
-
General: No Apparent Distress, Comfortable and Morbidly Obese
HEENT: Normocephalic, Atraumatic and Moist Mucous Membranes
Respiratory: Clear to Auscultation; Negative Wheezes, Rales, Rhonchi or Crackles
Cardiac: Regular Rhythm, S1/S2 and Tachycardic
GI: Soft and Nontender
Musculoskeletal: No Clubbing, No Cyanosis and Other (RLE in MEGHANA wrap, LLE calf nontender to palpation, no discoloration)
Skin: Warm and Dry
Neuro: Awake, Alert and Oriented
Psych: Calm
Data Reviewed
-
Ultrasound: Report Reviewed by me and Discussed with Patient
Labs: Labs Reviewed by me and Discussed with Patient
[2024-05-14 14:22] VITALS: BP 145/71
--- NOTE | 2024-05-14 15:59 | W.PN.PUL3 ---
Today's Communication / Plan
-
Transition to Eliquis
Slow increase in activity, follow heart rate and saturation
Short-term follow-up with pulmonary
Avoid heavy lifting, frequent bending over for at least 2 weeks
Disposition efforts
Assessment
-
Patient is a 74-year-old male, with history of fall about 2 weeks ago resulting in a right shoulder injury/humerus fracture and right leg patient was being seen by Ortho and wound care center on outpatient basis and he was scheduled for a TSA on
05/14/2024. Yesterday, he was getting ready for bed when he started to feel dizzy and short of breath. He continued to experience the symptoms and became tachycardic, tachypneic, called EMS, EKG was done in the ER that had classic picture of
[id number], CT chest was done that showed multiple pulmonary emboli with a saddle embolus involving the bifurcation of the pulmonary trunk along with mild right heart strain.Patient was immediately started on heparin infusion and IR was consulted.
Patient underwent catheter directed thrombolysis without any issues. Post procedure, patient was on high flow oxygen at 50 L/min, currently breathing on 5 L of oxygen. Patient stable, tolerated the procedure well, on heparin at 2200 units/h.
Repeated PA Gram showed slight improvement. Echocardiography done yesterday on 05/12/2024, showed normal left ventricular function and mild hypokinesia of right ventricle.
# Acute hypoxemic respiratory failure secondary to massive saddle pulmonary embolus
# Elevated troponin likely secondary to demand ischemia
# Essential hypertension
# Hyperlipidemia
# Obstructive sleep apnea
Plan/recommendations
# Acute hypoxemic respiratory failure secondary to massive saddle pulmonary embolus
Had catheter directed thrombolysis with tPA on 05/12/2024
PA Gram showed mild improvement
Transition from heparin to Lovenox, now on Eliquis
Presently on room air
Desaturated to 88-89% with ambulation
Echocardiography shows normal left ventricular size and ejection fraction of 55 to 60% with mild right ventricular hypokinesia.
# Elevated troponin likely secondary to demand ischemia
Troponin on admission 0.4, peaked up to 1.8, now trending down to 1.3
No signs and symptoms of cardiac ischemia, most likely this is demand ischemia from pulmonary embolism
Cardiology following
# Essential hypertension
Continue home medications
# Hyperlipidemia
Continue home dose of statin
# Obstructive sleep apnea
Patient uses CPAP at home
CODE STATUS full code
DVT prophylaxis-now on Eliquis
Disposition efforts. Will need pulmonary follow-up in the short-term
Subjective Data
-
Date of Service:
Date of Service: May 14, 2024
Subjective:
Patient is feeling better. Ambulated today, saturation went down to 89%. Denies chest pain, pleurisy, lightheadedness, palpitations. Denies significant cough. Feels much improved since admission
Objective Data
Data Reviewed
Vital Signs / I&O / Oxygen:
Vital Signs
Temp Pulse Resp BP Pulse Ox
97.5 F 101 16 145/71 96
05/14/24 14:22 05/14/24 14:22 05/14/24 14:22 05/14/24 14:22 05/14/24 14:22
Intake and Output
05/13/24 05/14/24 05/15/24
06:59 06:59 06:59
Intake Total 1143 / 1168 1553 / 1553
Output Total 1870 / 1870 1025 / 1025
Balance -727 / -702 528 / 528
SaO2 96
Nasal Cannula flow liters per 1
minute
Physical Exam
General: Comfortable and Other (Large neck)
HEENT: Normocephalic and Anicteric
Cardiovascular: S1-S2, Regular Rhythm (Mild tachycardia) and Murmur (n)
Respiratory: Wheeze (n), Crackles (n), Rhonchi (n) and Non-Labored Respirations
GI: Soft, Non Distended (Obese) and Non Tender
Neurology: Awake, Alert and No Motor Deficits (Moves all extremities)
Skin: Cyanosis (n), Jaundice (n) and Rash (n)
Labs/Micro/Reports
Lab Data
05/14/24 06:47
05/14/24 06:47
Laboratory Results
05/14/24
06:47
APTT 39.7 H
[2024-05-14 19:38] VITALS: BP 156/82
[2024-05-14 23:21] VITALS: BP 148/74
[2024-05-15 03:20] VITALS: BP 163/86
[2024-05-15 06:49] LABS: Hematocrit 31.8 % (39.0-52.0); Hemoglobin 10.6 g/dL (13.0-18.0); Mean Corp Hgb Conc. 33.3 g/dL (33.0-37.0); Mean Corpuscular Hgb 29.4 pg (27.0-31.0); Mean Corpuscular Volume 88.3 fL (80.0-94.0); Mean Platelet Volume 9.6 fL (7.4-10.4); Platelet Count 77 10^3/uL (130-400); Red Cell Dist. Width 13.9 % (11.5-14.5); White Blood Cell Count 6.7 10^3/uL (4.8-10.8)
[2024-05-15 07:16] LABS: Blood Urea Nitrogen 18 mg/dl (9-20); Calcium 8.7 mg/dl (8.4-10.2); Carbon Dioxide 27 mmol/L (22-30); Chloride 104 mmol/L (98-107); Estimated Creatinine Clearance 123 ml/min; Glucose 110 mg/dl (70-99); Potassium 3.7 mmol/L (3.5-5.1); Sodium 138 mmol/L (135-145); eGFR > 60.00
[2024-05-15 07:39] VITALS: BP 151/86
[2024-05-15] MEDS: ORETIC 25 MG PO (08:21)
[2024-05-15] MEDS: ELIQUIS 10 MG PO (08:21)
[2024-05-15] MEDS: LIPITOR 20 MG PO (08:22)
[2024-05-15] MEDS: NORVASC 10 MG PO (08:22)
[2024-05-15] MEDS: ZESTRIL 40 MG PO (08:22)
--- NOTE | 2024-05-15 09:50 | W.PN.UPDATE ---
Addendum entered and electronically signed by Amauri Gonsales MD 05/15/24 13:09:
Total time spent on d/c = 36 min. This included today's physical exam, progress note, review of laboratory and diagnostic data, preparation of discharge documents and prescriptions, and discussions about the pt's hospital course and discharge plan
with the patient and other internist medical doctor md involved in the patient's care.
Original Note:
Update Note
Progress Note Update
I saw and evaluated the patient. I reviewed the resident�s note and agree with findings and plan as documented in the resident�s note.
No new complaints.
Gen: remains NAD, AAOx3.
Eyes: EOMI, PERRLA, no scleral icterus.
Neck: supple.
CV: RRR, +S1/S2, no m/r/g.
Resp: continues to remain CTAB anteriorly, no rales, wheezes, or rhonchi.
Abd: +BS, soft, NT, ND
Skin: No rashes.
Neuro: CN 2-12 intact, non-focal.
Psych: Normal mood and affect.
CTA chest: Multiple pulmonary emboli with a saddle embolus involving the bifurcation of the pulmonary trunk. Severe clot burden. Signs of mild right heart strain.
Echo: Normal left ventricular chamber size. Normal left ventricular systolic
function. Left ventricular ejection fraction is 55-60% by visual assessment.
Normal regional wall motion. Mild concentric left ventricular hypertrophy.
Normal left ventricular wall thickness. Normal diastolic function.
Enlarged right ventricular size. Right ventricle was not well seen but may
have been hypokinetic.
Mildly dilated aortic root. Ao Sinus Diameter 3.9 cm.
Acute hypoxic respiratory failure due to massive PE/saddle embolus:
-IR initiated catheter directed thrombolysis. Pressures cannot be measured due to significant resistance advancing 7F APC catheter through the heart, possibly caught on chordae tendineae.
-was on alteplase gtt which was stopped 05/12/24. Was on heparin gtt, then transitioned to therapeutic Lovenox, now on Eliquis.
-was on 55L high flow, now weaned to RA
-Echo above, see bold
-Elevated troponin, likely Type II [place] due to acute PE. Cards following.
Other problems:
Essential HTN: HCTZ/Lisinopril/Norvasc
HLD: cont statin
Morbid obesity due to excess calories
RENA
FULL/Eliquis
Medically cleared for d/c. Case management aware.
--- NOTE | 2024-05-15 10:44 | W.PN.HOSP.TC ---
Today's Communication/Plan
-
D/c to home
Assessment / Plan
Assessment / Plan
1. Acute hypoxic respiratory failure 2/2 massive PE/saddle embolus
-Catheter directed thrombolysis (appreciate IRADS):
-5 mg tPA bolus, tPA drip at 1 mg/h
-Heparin at 600 units/h
-Follow up PA-gram showed marked improvement
-Transitioned to Heparin Drip
-Transitioned to Lovenox
-Transition to Eliquis yesterday (05/14)
-Outpatient Eliquis; 10mg BID for a total of 7 days (until 05/21) and then 5mg BID for 9 months
-Wean O2 as tolerated; weaned to RA, patient tolerating
-US LLE showed occlusive thrombus/DVT in the left peroneal vein
2. Elevated Troponin (resolved)
-Likely demand ischemia in the setting of acute pulmonary embolus
-Troponin on admission 0.4 => 1.8 (max) --> 1.3; can stop trending trop
- Appreciate cardiology reccs
3. Essential HTN
-Increased Norvasc to 10 mg daily
-Continue lisinopril/HCTZ 20/12.5 mg twice daily
4. Hyperlipidemia
-Continue atorvastatin 20 mg daily
5. Morbid obesity/RENA
6. Thrombocytopenia
- Likely in the setting of Lovenox, transitioned to Eliquis
- Improved this AM
Full code/Eliquis/Regular
Anticipated Discharge: Today
Subjective/Interval History
-
Date of Service: May 15, 2024
No new complaints this morning. Patient is off of oxygen and tolerating well.
Objective Data
-
Labs:
Laboratory Results
05/15/24
06:30
WBC 6.7
Hgb 10.6 L
Hct 31.8 L
Plt Count 77 L
Sodium 138
Potassium 3.7
Chloride 104
Carbon Dioxide 27
BUN 18
Creatinine 0.7
Glucose 110 H
Calcium 8.7
Vital Signs:
Vital Signs
Temp Pulse Resp BP Pulse Ox
98.0 F 92 17 151/86 94
05/15/24 07:39 05/15/24 08:22 05/15/24 07:39 05/15/24 08:22 05/15/24 07:39
I&O
05/14/24 05/15/24 05/16/24
06:59 06:59 06:59
Intake Total 1553 / 1553 300 / 300
Output Total 1025 / 1025
Balance 528 / 528 300 / 300
Review of Systems
-
History Source: Patient
Constitutional: Reports No Symptoms
Respiratory: Reports No Symptoms
Cardiac: Reports No Symptoms
Abdomen/GI: Reports No Symptoms
Neuro: Reports No Symptoms
Physical Exam
-
General: No Apparent Distress, Comfortable and Morbidly Obese
HEENT: Normocephalic, Atraumatic and Anicteric
Respiratory: Clear to Auscultation and Non Labored Respirations; Negative Wheezes, Rales or Rhonchi
Cardiac: Regular Rhythm and S1/S2; Negative Murmur, Rub or Gallop
GI: Soft and Nontender
Skin: Warm and Dry
Neuro: Awake, Alert, Oriented and Nonfocal/Grossly Intact
Psych: Calm
Data Reviewed
-
Labs: Labs Reviewed by me and Discussed with Patient
--- NOTE | 2024-05-15 10:45 | W.PN.PUL3 ---
Today's Communication / Plan
-
Ambulating without difficulty
Tolerating Eliquis
Will require pulmonary follow-up in the next 3 to 4 weeks, information left in chart
Reviewed at length limitations over the next 2 weeks
Disposition efforts
Assessment
-
Patient is a 74-year-old male, with history of fall about 2 weeks ago resulting in a right shoulder injury/humerus fracture and right leg patient was being seen by Ortho and wound care center on outpatient basis and he was scheduled for a TSA on
05/14/2024. Yesterday, he was getting ready for bed when he started to feel dizzy and short of breath. He continued to experience the symptoms and became tachycardic, tachypneic, called EMS, EKG was done in the ER that had classic picture of
[id number], CT chest was done that showed multiple pulmonary emboli with a saddle embolus involving the bifurcation of the pulmonary trunk along with mild right heart strain.Patient was immediately started on heparin infusion and IR was consulted.
Patient underwent catheter directed thrombolysis without any issues. Post procedure, patient was on high flow oxygen at 50 L/min, currently breathing on 5 L of oxygen. Patient stable, tolerated the procedure well, on heparin at 2200 units/h.
Repeated PA Gram showed slight improvement. Echocardiography done yesterday on 05/12/2024, showed normal left ventricular function and mild hypokinesia of right ventricle.
# Acute hypoxemic respiratory failure secondary to massive saddle pulmonary embolus
# Elevated troponin likely secondary to demand ischemia
# Essential hypertension
# Hyperlipidemia
# Obstructive sleep apnea
Plan/recommendations
# Acute hypoxemic respiratory failure secondary to massive saddle pulmonary embolus
Had catheter directed thrombolysis with tPA on 05/12/2024
PA Gram showed mild improvement
Transition from heparin to Lovenox, now on Eliquis, 10 mg twice a day
Presently on room air
Ambulating now without any symptoms
Echocardiography shows normal left ventricular size and ejection fraction of 55 to 60% with mild right ventricular hypokinesia.
Reviewed at length pathophysiology of thromboembolic disease
Reviewed limitations over the next 2 weeks. No heavy lifting, avoid frequent bending over, no intense exercise.
Simple ambulation is adequate
Will require follow-up in the pulmonary office in the next 3 to 4 weeks and then again 2 to 3 months thereafter with follow-up echo
Patient questions answered, and understands plan
# Elevated troponin likely secondary to demand ischemia
Troponin on admission 0.4, peaked up to 1.8, now trending down to 1.3
No signs and symptoms of cardiac ischemia, most likely this is demand ischemia from pulmonary embolism
Cardiology following
# Essential hypertension
Continue home medications
# Hyperlipidemia
Continue home dose of statin
# Obstructive sleep apnea
Patient uses CPAP at home
CODE STATUS full code
DVT prophylaxis-now on Eliquis
Disposition efforts. Will need pulmonary follow-up in the short-term
Subjective Data
-
Date of Service:
Date of Service: May 15, 2024
Subjective:
Patient feels improved. Ambulating without difficulty. Denies chest pain, pleurisy, lightheadedness, dizziness, palpitations. Currently sitting in chair, on room air. Transition to oral anticoagulation. Heart rate improved
Objective Data
Data Reviewed
Vital Signs / I&O / Oxygen:
Vital Signs
Temp Pulse Resp BP Pulse Ox
98.0 F 92 17 151/86 94
05/15/24 07:39 05/15/24 08:22 05/15/24 07:39 05/15/24 08:22 05/15/24 07:39
Intake and Output
05/14/24 05/15/24 05/16/24
06:59 06:59 06:59
Intake Total 1553 / 1553 300 / 300
Output Total 1025 / 1025
Balance 528 / 528 300 / 300
SaO2 94
Nasal Cannula flow liters per 1
minute
Physical Exam
General: Comfortable and Other (Large neck)
HEENT: Normocephalic and Anicteric
Cardiovascular: S1-S2, Regular Rhythm (Mild tachycardia) and Murmur (n)
Respiratory: Wheeze (n), Crackles (n), Rhonchi (n) and Non-Labored Respirations
GI: Soft, Non Distended (Obese) and Non Tender
Neurology: Awake, Alert and No Motor Deficits (Moves all extremities)
Skin: Cyanosis (n), Jaundice (n) and Rash (n)
Labs/Micro/Reports
Lab Data
05/15/24 06:30
05/15/24 06:30
[2024-05-15 10:53] VITALS: BP 141/67
[2024-05-15 12:44] VITALS: BP 140/52; PULSE 93; O2SAT 94
--- NOTE | 2024-05-15 13:32 | VNURNOTE ---
VN liaison spoke with patient. He is current with [facility] and confirms he would like to resume services upon DC. Resumption referral placed in [facility].
--- NOTE | 2024-05-15 14:43 | CM ---
Patient stable for discharge. He stated that his son is on his way to bring him home. He is agreeable to VN.
IMM signed and on chart.
Plan: Case management will continue to follow and assist with discharge planning. Home.
--- NOTE | 2024-05-15 14:45 | CM ---
Spoke with attending who stated that patient at baseline and ready for discharge. Met with patient who had some medical concerns. RN addressing. Patient signed IMM. He stated that his S.O can pick him up to transfer home.
Plan: Case management will continue to follow and assist with discharge planning. Home.
[2024-05-15 15:27] VITALS: BP 148/83
--- NOTE | 2024-05-15 16:39 | W.DCSUMMARY ---
Discharge Summary
Discharge Data
Date of Admission: 05/11/24
Date of Discharge: 05/15/24
-
Pending Results: No
Hospital Course
Bruce Mcghee is a 74-year-old male with a past medical history of hypertension, obstructive sleep apnea, hypothyroidism, benign prostatic hyperplasia, hyperlipidemia, peripheral neuropathy, and a recent fall and humerus fracture who presented from
home to the emergency department with dizziness and shortness of breath. Patient noted that a few days prior to arrival, he had noticed swelling of the left lower extremity. He reports that the day he arrived, he felt in his usual state of health
until approximately 8:15 PM when he ambulated in his home and felt dizziness and shortness of breath. Patient called EMS and when they arrived at his home he was hypoxic and required 6 L of oxygen by nasal cannula. Additionally, he was tachycardic
in the 120s to 130s.
ED COURSE:
In the emergency room, patient was tachycardic and required 6 L of oxygen by nasal cannula. In addition, he had slightly decreased breath sounds.CTA of the chest showed multiple pulmonary emboli with a saddle embolus involving the bifurcation of
the pulmonary trunk with severe clot burden and signs of mild right heart strain. Troponin was 0.4 (initial rise, then downtrended). Patient was admitted to the intensive care unit for catheter directed thrombolysis of the saddle embolus.
HOSPITAL COURSE:
Patient initially received 50 L of high flow oxygen, which was progressively weaned down to room air by the fourth day of admission. In the intensive care unit, patient received catheter directed thrombolysis of the saddle embolus with tPA followed
by heparin. Following acceptable resolution, the patient was transitioned to a heparin drip, then Lovenox, then started on a loading dose of Eliquis. Over the next few days, the patient both subjectively felt better and improved clinically. An
ultrasound of the left lower extremity on the final day of his admission revealed a occlusive deep vein thrombosis of the left peroneal artery. The patient was discharged to home on 05/15/2024 on a loading dose of Eliquis to be transitioned to a
maintenance dose after 7 days, and an increased dose of Norvasc.
DISCHARGE RECOMMENDATIONS
Patient was started on Eliquis. 10mg twice a day through 05/21/2024. Then, 5mg twice a day indefinitely.
Patient's Norvasc dose was increased to 10 mg daily. The rest of his antihypertensive regimen is unchanged.
Patient should avoid heavy lifting, frequent bending over, and intense exercise. Simple ambulation is adequate.
Follow-up with the patient's primary care provider in less than 1 week for additional recommendations.
Primary care provider should follow-up with the patient regarding ambulatory O2 status.
Follow-up with cardiology and pulmonology as discussed and scheduled.
Discharge Plan
-
Patient Disposition: Home (Routine Discharge)
Discharge Diagnosis/Procedures: Acute Hypoxic Respiratory Failure
Massive Pulmonary Embolus/Saddle Embolus
Essential Hypertension
Condition: Fair
Diet: Regular
Activity: Other activity
Additional Activity: Avoid heavy lifting or frequent bending for at least 2 weeks.
Activity Restrictions/Additional Instructions:
Wound Care Instructions
R elbow: clean with soap and water, dry dressing, change q 2- 3 days and prn drainage.
R leg: clean with soap and water, adaptic, ABD pads and kerlix q other day and prn drainage.
Leg elevation when sitting.
R leg- knee high khadijah wrap daily
Follow up at wound care center call for an appointment.
Referrals:
Norma Begum PA-C [Specified Professional Personl] - 06/03/24 9:40 am (You have a cardiology follow up appointment at the [place] office. Please call with questions. )
Jimmy Iglesias PA [Family Provider] - in less than 1 week
Kyrie Aguilera MD [Active] - in three to four weeks (May see [employer] [employer])
UNKNOWN - PT NOT,INTERVIEWE [Unknown Provider] -
Prescriptions:
New
amlodipine 10 mg Tablet
10 mg PO DAILY Qty: 30 0RF
Eliquis 5 mg tablet
10 mg PO BID Qty: 22 0RF
Rx Instructions:
Last dose of loading period: 05/20/24PM
Eliquis 5 mg tablet
5 mg PO BID Qty: 60 0RF
Rx Instructions:
Maintenance dose (after loading period): Start 05/21/24AM
Continued
atorvastatin 20 mg Tablet
20 mg PO DAILY
lisinopril-hydrochlorothiazide 20-12.5 mg Tablet
2 tab PO DAILY
fluticasone propionate 50 mcg/actuation [place],Suspension
2 spray INTRANASAL DAILY
Held
aspirin 81 mg Tablet,Delayed Release (Dr/Ec)
81 mg PO DAILY
Hold Instructions: Hold until seen by your primary care provider.
Discontinued
amlodipine 2.5 mg Tablet
2.5 mg PO DAILY
Discharge Orders:
Discharge Patient (As Directed); Ordered 05/15/24
Ordered By: Dimitri Verdugo
Discharge Date and Time
Discharge Date/Time: 05/15/24 15:59
Print Language: GEORGIAN
== END 2024-05-15 15:59 | disposition home or self-care (01) | DRG 175 ==
LOC: 3 WEST ACU 23:21
PROVIDERS: Nurse Practitioner Family; Nurse Practitioner Primary Care; Radiology Diagnostic Radiology; Radiology Vascular & Interventional Radiology; Registered Nurse; Student in an Organized Health Care Education/Training Program; ADMITTING PHYSICIAN Internal Medicine; ATTENDING PHYSICIAN Internal Medicine; CONSULT PHYSICIAN Internal Medicine Cardiovascular Disease; EMERGENCY PHYSICIAN Emergency Medicine; FAMILY PHYSICIAN Physician Assistant; OTHER PHYSICIAN Internal Medicine Critical Care Medicine
PROC: 3E06317 Introduction of Other Thrombolytic into Central Artery, Percutaneous Approach (ICD-10-PCS; 2024-05-11)
PROC: 4A033B3 Measurement of Arterial Pressure, Pulmonary, Percutaneous Approach (ICD-10-PCS; 2024-05-12)
PROC: B31T1ZZ Fluoroscopy of Left Pulmonary Artery using Low Osmolar Contrast (ICD-10-PCS; 2024-05-12)
PROC: B31S1ZZ Fluoroscopy of Right Pulmonary Artery using Low Osmolar Contrast (ICD-10-PCS; 2024-05-12)
DX: I26.92 Saddle embolus of pulmonary artery without acute cor pulmonale (principal); J96.01 Acute respiratory failure with hypoxia; N13.8 Other obstructive and reflux uropathy; I24.89 Other forms of acute ischemic heart disease; Z68.41 Body mass index [BMI] 40.0-44.9, adult; I82.452 Acute embolism and thrombosis of left peroneal vein; G47.33 Obstructive sleep apnea (adult) (pediatric); N40.1 Benign prostatic hyperplasia with lower urinary tract symptoms; E03.9 Hypothyroidism, unspecified; E78.2 Mixed hyperlipidemia; G60.9 Hereditary and idiopathic neuropathy, unspecified; Z79.82 Long term (current) use of aspirin; I11.9 Hypertensive heart disease without heart failure; E66.01 Morbid (severe) obesity due to excess calories; R73.03 Prediabetes; Z85.828 Personal history of other malignant neoplasm of skin; I25.10 Atherosclerotic heart disease of native coronary artery without angina pectoris; Z79.899 Other long term (current) drug therapy; I45.9 Conduction disorder, unspecified; Z91.81 History of falling
CPT/HCPCS: 36015; 36620; 37214; 51702; 71275; 75741; 76937; 80048; 80053; 83036; 83735; 84100; 84484; 85025; 85027; 85384; 85610; 85730; 93005; 93306; 93970; 96374; 97116; 97163; 97167; 99291; C1769; C1887; J2997; Q9967

== ENCOUNTER → 2024-05-22 13:54 | Outpatient (REF) | payer MEDICARE, OTHER, SELFPAY | LOC: WOUND 13:54 | PROVIDERS: ATTENDING PHYSICIAN Surgery; FAMILY PHYSICIAN Physician Assistant | DX: L97.212 Non-pressure chronic ulcer of right calf with fat layer exposed (principal); S80.11XA Contusion of right lower leg, initial encounter; S51.001A Unspecified open wound of right elbow, initial encounter; I10 Essential (primary) hypertension; R73.03 Prediabetes; W10.9XXA Fall (on) (from) unspecified stairs and steps, initial encounter | CPT/HCPCS: 99213 ==

== ENCOUNTER → 2024-06-12 09:50 | Outpatient (REF) | payer MEDICARE, OTHER, SELFPAY | LOC: WOUND 09:50 | PROVIDERS: ATTENDING PHYSICIAN Surgery; FAMILY PHYSICIAN Physician Assistant | DX: L97.212 Non-pressure chronic ulcer of right calf with fat layer exposed (principal); S80.11XA Contusion of right lower leg, initial encounter; I10 Essential (primary) hypertension; R73.03 Prediabetes; X58.XXXA Exposure to other specified factors, initial encounter | CPT/HCPCS: 99212 ==

== ENCOUNTER → 2024-08-19 07:45 | Outpatient (REF) | payer MEDICARE, OTHER, SELFPAY ==
[2024-08-19 08:59] LABS: % Basophils 0.2 % (0-2); % Eosinophils 1.5 % (0-6); % Immature Granulocytes 0.2 % (0-0.5); % Lymphocytes 23.8 % (20.5-51.1); % Monocytes 7.4 % (1.7-9.3); % Neutrophils 66.9 % (42.2-75.2); Absolute Eosinophils 0.1 10^3/uL (0-0.7); Absolute Lymphocytes 1.3 10^3/uL (1.2-3.4); Absolute Monocytes 0.4 10^3/uL (0.1-0.6); Absolute Neutrophils 3.6 10^3/uL (1.4-6.5); Hematocrit 40.7 % (39.0-52.0); Hemoglobin 13.3 g/dL (13.0-18.0); Mean Corp Hgb Conc. 32.7 g/dL (33.0-37.0); Mean Corpuscular Hgb 28.5 pg (27.0-31.0); Mean Corpuscular Volume 87.3 fL (80.0-94.0); Mean Platelet Volume 8.8 fL (7.4-10.4); Nucleated Red Blood Cells % 0 % (-); Platelet Count 246 10^3/uL (130-400); Red Blood Cell Count 4.66 10^6/uL (4.70-6.10); Red Cell Dist. Width 14.5 % (11.5-14.5); White Blood Cell Count 5.4 10^3/uL (4.8-10.8)
[2024-08-19 09:49] LABS: Urine Albumin Negative (Neg - Trace); Urine Bilirubin Negative (Negative); Urine Character Clear (Clear); Urine Color Yellow; Urine Glucose Negative (Negative); Urine Ketone Negative (Negative); Urine Leukocyte Negative (Negative); Urine Nitrite Negative (Negative); Urine Occult Blood Negative (Negative); Urine Specific Gravity 1.015 (<1.030); Urine Urobilinogen Negative (Neg - 1+)
[2024-08-19 09:55] LABS: ALT (SGPT) 21 U/L (0-50); AST (SGOT) 27 U/L (17-59); Albumin 3.7 g/dl (3.5-5.0); Alkaline Phosphatase 81 U/L (38-126); Blood Urea Nitrogen 19 mg/dl (9-20); Calcium 9.3 mg/dl (8.4-10.2); Carbon Dioxide 30 mmol/L (22-30); Chloride 108 mmol/L (98-107); Glucose 101 mg/dl (70-99); HDL Cholesterol 38 mg/dl; LDL Cholesterol, Calculated 60 mg/dl; Sodium 143 mmol/L (135-145); Total Bilirubin 0.6 mg/dl (0.2-1.3); Total Cholesterol 115 mg/dl (50-199); Total Protein 6.3 g/dl (6.3-8.2); Triglyceride 88 mg/dl (10-149); Very Low Density Lipoprotein 17 mg/dl (0-30); eGFR > 60.00
[2024-08-19 15:02] LABS: PSA, Total - Screen 8.59 ng/ml (0.0-4.0)
== END ==
LOC: REG 07:45
PROVIDERS: ATTENDING PHYSICIAN Physician Assistant
DX: I10 Essential (primary) hypertension (principal); E78.2 Mixed hyperlipidemia; R73.9 Hyperglycemia, unspecified; Z12.5 Encounter for screening for malignant neoplasm of prostate
CPT/HCPCS: 36415; 80053; 80061; 81003; 83036; 85025; G0103

== ENCOUNTER → 2024-09-02 10:01 | Outpatient (REF) | payer MEDICARE, OTHER, SELFPAY | LOC: RAD 10:01 | PROVIDERS: ATTENDING PHYSICIAN Nurse Practitioner Adult Health; FAMILY PHYSICIAN Physician Assistant | DX: R06.02 Shortness of breath (principal); R22.42 Localized swelling, mass and lump, left lower limb | CPT/HCPCS: 71275; 93970; Q9967 ==

== ENCOUNTER → 2024-10-07 08:03 | Outpatient (REF) | payer MEDICARE, OTHER, SELFPAY ==
[2024-10-07 09:33] LABS: Hematocrit 42.0 % (39.0-52.0); Hemoglobin 13.9 g/dL (13.0-18.0); Mean Corp Hgb Conc. 33.1 g/dL (33.0-37.0); Mean Corpuscular Volume 87.5 fL (80.0-94.0); Nucleated Red Blood Cells % 0 % (-); Platelet Count 237 10^3/uL (130-400); Red Cell Dist. Width 14.4 % (11.5-14.5)
[2024-10-07 10:09] LABS: Iron 76 ug/dl (49-181)
[2024-10-07 10:16] LABS: D-Dimer < 0.27 ug/mlFEU (0.00-0.50)
[2024-10-07 10:19] LABS: Total Iron Binding Capacity 317 ug/dl (261-462)
[2024-10-07 10:46] LABS: Ferritin 46.1 ng/ml (17.9-464.0)
[2024-10-09 06:50] LABS: Beta-2-Glycoprotein I Ab. IgG <10 SGU (<=20); Beta-2-Glycoprotein I Ab. IgM <10 SMU (<=20)
[2024-10-09 11:00] LABS: Protein S Total Antigen 109 % (84-134)
[2024-10-09 23:43] LABS: Anticoagulant Med Neutralizati DOAC-Stop (Not Performed); Neutralized dRVTT Screen Ratio 1.02 (<=1.20); Prothrombin Time 15.4 s (12.0-15.5); dRVTT 1.1 Mix Ratio Not Performed (<=1.20); dRVTT Confirmation Ratio Not Performed (<=1.20); dRVTT Screen Ratio 1.45 (<=1.20)
== END ==
LOC: REG 08:03
PROVIDERS: ATTENDING PHYSICIAN Internal Medicine Hematology & Oncology; FAMILY PHYSICIAN Physician Assistant
DX: I26.09 Other pulmonary embolism with acute cor pulmonale (principal); D69.6 Thrombocytopenia, unspecified; I82.452 Acute embolism and thrombosis of left peroneal vein; I21.A1 Myocardial infarction type 2
CPT/HCPCS: 36415; 81240; 81241; 82728; 83540; 83550; 85025; 85300; 85305; 85379; 85610; 85613; 85730; 86146; 86147

== ENCOUNTER → 2024-11-01 09:42 | Outpatient (REF) | payer MEDICARE, OTHER, SELFPAY | LOC: RAD 09:42 | PROVIDERS: ATTENDING PHYSICIAN Student in an Organized Health Care Education/Training Program; FAMILY PHYSICIAN Physician Assistant | DX: S42.201D Unspecified fracture of upper end of right humerus, subsequent encounter for fracture with routine healing (principal); M25.511 Pain in right shoulder | CPT/HCPCS: 73200 ==

== ENCOUNTER 2024-11-26 06:17 | Day surgery (SDC) | payer MEDICARE, OTHER, SELFPAY ==
--- NOTE | 2024-10-31 14:15 | CM ---
Addendum entered by Edwige Layton RN 10/31/24 15:37:
Demographics:Lives in 55[place] community
Living situation:Independent with
Support Person Post Operatively:
History of
VN:yes, not on service, [facility]
SNF: No
Outpatient: None, pending surgical clearance
Has patient purchased required equipment: yes
PCP: [facility]
Pharmacy: [facility]
Post Operative Discharge Plan: Home with .
Original Note:
CM reviewed medical records. CM left message for pre-operative case management assessment.
[2024-11-11 13:48] VITALS: BMI 38.2
[2024-11-11 14:33] LABS: Hematocrit 42.7 % (39.0-52.0); Hemoglobin 14.0 g/dL (13.0-18.0); Mean Corp Hgb Conc. 32.8 g/dL (33.0-37.0); Mean Corpuscular Volume 88.6 fL (80.0-94.0); Platelet Count 241 10^3/uL (130-400); Red Cell Dist. Width 14.1 % (11.5-14.5)
[2024-11-11 14:57] LABS: D-Dimer 0.60 ug/mlFEU (0.00-0.50)
[2024-11-11 16:11] LABS: ALT (SGPT) 17 U/L (0-50); AST (SGOT) 26 U/L (17-59); Albumin 4.3 g/dl (3.5-5.0); Alkaline Phosphatase 79 U/L (38-126); Blood Urea Nitrogen 25 mg/dl (9-20); Calcium 9.6 mg/dl (8.4-10.2); Carbon Dioxide 31 mmol/L (22-30); Chloride 104 mmol/L (98-107); Estimated Creatinine Clearance 105 ml/min; Glucose 101 mg/dl (70-99); Potassium 4.5 mmol/L (3.5-5.1); Sodium 141 mmol/L (135-145); Total Protein 6.9 g/dl (6.3-8.2); eGFR > 60.00
[2024-11-12 09:02] LABS: Glycohemoglobin (HgbA1c) 5.7 % (4.0-5.6)
[2024-11-20 08:26] VITALS: BMI 38.2
[2024-11-26] VITALS (8 sets, daily range): BP systolic 86–142; BP diastolic 48–86; BMI 38.2
[2024-11-26] MEDS: NORMOSOL-R/PLASMALYTE-A 1000 IV (07:28)
[2024-11-26] MEDS: CELEBREX 200 MG PO (07:34)
[2024-11-26] MEDS: TYLENOL 1000 MG PO (07:34)
--- NOTE | 2024-11-26 07:51 | PTCARENOTE ---
Patient has a hematoma to the R lateral leg. Dr. Lion made aware and orders to only put a ivan to the L leg. Patient agreeable and aware.
[2024-11-26] MEDS: ANCEF 5 IV (12:10)
== END 2024-11-26 12:29 | disposition home or self-care (01) ==
LOC: SDS 06:17
PROVIDERS: ATTENDING PHYSICIAN Orthopaedic Surgery Hand Surgery; FAMILY PHYSICIAN Physician Assistant; OTHER PHYSICIAN Internal Medicine Cardiovascular Disease; OTHER PHYSICIAN Physician Assistant; REFERRING PHYSICIAN Internal Medicine Hematology & Oncology
DX: S42.201A Unspecified fracture of upper end of right humerus, initial encounter for closed fracture (principal); W01.0XXA Fall on same level from slipping, tripping and stumbling without subsequent striking against object, initial encounter; Z86.711 Personal history of pulmonary embolism
CPT/HCPCS: 23472; C1776; C1713; 36415; 73020; 80053; 83036; 85027; 85379; 87070

== ENCOUNTER → 2024-12-09 11:00 | Outpatient (REF) | payer MEDICARE, OTHER, SELFPAY ==
[2024-12-09 12:16] LABS: D-Dimer 1.59 ug/mlFEU (0.00-0.50)
== END ==
LOC: REG 11:00
PROVIDERS: ATTENDING PHYSICIAN Internal Medicine Hematology & Oncology; FAMILY PHYSICIAN Physician Assistant
DX: N13.8 Other obstructive and reflux uropathy (principal); I10 Essential (primary) hypertension; E78.2 Mixed hyperlipidemia
CPT/HCPCS: 36415; 85379

== ENCOUNTER 2025-01-05 11:29 | Outpatient (RCR) | payer MEDICARE, OTHER, SELFPAY | END 2025-01-05 23:59 | disposition home or self-care (01) | LOC: RPT 11:29 | PROVIDERS: ATTENDING PHYSICIAN Student in an Organized Health Care Education/Training Program; FAMILY PHYSICIAN Physician Assistant | DX: Z47.1 Aftercare following joint replacement surgery (principal); M62.81 Muscle weakness (generalized); S42.91XD Fracture of right shoulder girdle, part unspecified, subsequent encounter for fracture with routine healing; Z73.6 Limitation of activities due to disability; W19.XXXD Unspecified fall, subsequent encounter; Z96.611 Presence of right artificial shoulder joint; Z86.711 Personal history of pulmonary embolism | CPT/HCPCS: 97010; 97110; 97140; 97162 ==

== ENCOUNTER → 2025-01-06 11:13 | Outpatient (REF) | payer MEDICARE, OTHER, SELFPAY ==
[2025-01-06 13:06] LABS: D-Dimer 0.83 ug/mlFEU (0.00-0.50)
== END ==
LOC: REG 11:13
PROVIDERS: ATTENDING PHYSICIAN Internal Medicine Hematology & Oncology; FAMILY PHYSICIAN Physician Assistant
DX: I26.09 Other pulmonary embolism with acute cor pulmonale (principal)
CPT/HCPCS: 36415; 85379

== ENCOUNTER 2025-02-06 08:17 | Outpatient (RCR) | payer MEDICARE, OTHER, SELFPAY | END 2025-02-06 23:59 | disposition home or self-care (01) | LOC: RPT 08:17 | PROVIDERS: ATTENDING PHYSICIAN Student in an Organized Health Care Education/Training Program; FAMILY PHYSICIAN Physician Assistant | DX: Z47.1 Aftercare following joint replacement surgery (principal); M62.81 Muscle weakness (generalized); S42.91XD Fracture of right shoulder girdle, part unspecified, subsequent encounter for fracture with routine healing; Z73.6 Limitation of activities due to disability; W19.XXXD Unspecified fall, subsequent encounter; Z96.611 Presence of right artificial shoulder joint; Z86.711 Personal history of pulmonary embolism | CPT/HCPCS: 97010; 97110; 97140 ==

== ENCOUNTER 2025-03-06 07:04 | Outpatient (RCR) | payer MEDICARE, OTHER, SELFPAY | END 2025-03-06 23:59 | disposition home or self-care (01) | LOC: RPT 07:04 | PROVIDERS: ATTENDING PHYSICIAN Student in an Organized Health Care Education/Training Program; FAMILY PHYSICIAN Physician Assistant | DX: Z47.1 Aftercare following joint replacement surgery (principal); M62.81 Muscle weakness (generalized); S42.91XD Fracture of right shoulder girdle, part unspecified, subsequent encounter for fracture with routine healing; X58.XXXD Exposure to other specified factors, subsequent encounter; Z73.6 Limitation of activities due to disability; W19.XXXD Unspecified fall, subsequent encounter; Z96.611 Presence of right artificial shoulder joint; Z86.711 Personal history of pulmonary embolism | CPT/HCPCS: 97010; 97110; 97112; 97140 ==

== ENCOUNTER → 2025-03-30 08:55 | Outpatient (REF) | payer MEDICARE, OTHER, SELFPAY | LOC: RCS 08:55 | PROVIDERS: ATTENDING PHYSICIAN Internal Medicine Cardiovascular Disease; FAMILY PHYSICIAN Physician Assistant | DX: I26.92 Saddle embolus of pulmonary artery without acute cor pulmonale (principal) | CPT/HCPCS: 93306 ==

== ENCOUNTER 2025-04-06 16:58 | Outpatient (RCR) | payer MEDICARE, OTHER, SELFPAY | END 2025-04-06 23:59 | disposition home or self-care (01) | LOC: RPT 16:58 | PROVIDERS: ATTENDING PHYSICIAN Student in an Organized Health Care Education/Training Program; FAMILY PHYSICIAN Physician Assistant | DX: Z47.1 Aftercare following joint replacement surgery (principal); S42.91XD Fracture of right shoulder girdle, part unspecified, subsequent encounter for fracture with routine healing; X58.XXXD Exposure to other specified factors, subsequent encounter; Z73.6 Limitation of activities due to disability; M62.81 Muscle weakness (generalized); W19.XXXD Unspecified fall, subsequent encounter; Z96.611 Presence of right artificial shoulder joint; Z86.711 Personal history of pulmonary embolism | CPT/HCPCS: 97010; 97110; 97112; 97140 ==